=== PATIENT | female | born 1980 | race Caucasian/White ===

== ENCOUNTER 2016-12-04 19:43 | Emergency (ER) | payer OTHER ==
[~2016-12-04] VITALS: Ht 160 cm; Wt 79.3 kg
[~2016-12-04 19:43] MED LIST: ALBU1AER9 INH; MTR400 PO; PSEU30TA20 PO; PSEU60TA80 PO; ZFRODT/8 PO
[2016-12-04 19:47] VITALS: Ht 160 cm; Wt 79.3 kg
[2016-12-04] MEDS ORDERED: CYCL10TA6 PO (20:05)
--- NOTE | 2016-12-04 20:06 | EMERGENCY ROOM VISIT NOTE ---
ED Visit Note First contact with patient: 19:51 CHIEF COMPLAINT: Low back pain HISTORY OF PRESENT ILLNESS: This 35-year-old female patient presents to the emergency department ambulatory complaining of pain in the low back which is chronic, but worsened one week ago. The patient reports that she has chronic problems with her low back. She states that one week ago, she fell forward, which strained her low back. The pain has been gradually worsening over the past week. She states that her left leg occasionally goes numb, which has happened before with her chronic back pain. The pain is located in the left side of her low back and radiates into the hip. The patient rates her discomfort a 5/10 and describes the pain as sharp. She has not been taking any medication at home for the pain. The patient denies any loss of control of their bowel or bladder functions. There has been no leg numbness or weakness, and no change in sensation. No nausea or vomiting or abdominal pain. No chest pain or shortness of breath. No dysuria or increased urinary frequency. REVIEW OF SYSTEMS: A review of systems was performed with positives and pertinent negatives listed in the history of present illness. All other systems were reviewed and are negative. ALLERGIES: Cortisone, sulfa antibiotics MEDICATIONS: See med list PMH: Asthma SOCIAL HISTORY: The patient lives locally with her family. She is a smoker. She denies alcohol use. PHYSICAL EXAM: VITALS: Vitals are noted on the nurse's note and reviewed by myself. Vital signs stable. GENERAL: This is a 35-year-old female, in no acute distress, nondiaphoretic, well-developed well-nourished. SKIN: The skin was without rashes, erythema, edema, or bruising. Capillary refill less than 2 seconds. NECK: Supple without nuchal rigidity. No cervical spine tenderness. No paraspinous muscle tenderness. HEART: Regular rate and rhythm without murmurs gallops or rubs. LUNGS: Clear to auscultation bilaterally without wheezes, rales or rhonchi. ABDOMEN: Positive bowel sounds x 4. Normal tympanic percussion. Soft, nontender, without masses or organomegaly. Berman sign negative. MUSCULOSKELETAL: No muscle atrophy, erythema, or edema noted of the back. There is no tenderness over the lumbar spinous processes. There is no tenderness over the paraspinous muscles. There is no tenderness over the thoracic spine or paraspinous muscles. There are no muscle spasms present. The patient is slow to move around with maximum tenderness with flexion. Negative straight leg raise test. NEURO: Patient was alert and oriented to person place and time. Normal sensation to light and sharp touch. Deep tendon reflexes 2+ in the lower extremities. Dorsalis pedis pulse 2+ bilaterally. Strength 5/5 and equal in the bilateral lower extremities. EMERGENCY DEPARTMENT COURSE: The patient was evaluated as above. She presents with an acute exacerbation of chronic low back pain. The patient's exam is unremarkable. She did not sustain trauma to the back during the fall. There is nothing to suggest cauda equina syndrome or cord compression. I do not feel further imaging is necessary. The patient was given a prescription and home pack of Flexeril. She was instructed to follow-up with her primary care provider for further evaluation of her ongoing back pain. She will return for worsening symptoms. She verbalized understanding of my assessment and treatment plan and was discharged home in good condition. DIAGNOSIS: Acute exacerbation of chronic low back pain Problem List Medical Problems: (1) Acute bacterial tonsillitis Status: Resolved (2) Acute bacterial tonsillitis Status: Resolved (3) Acute tonsillitis Status: Resolved (4) Asthma, Unspecified Status: Chronic (5) Herniated disc Status: Chronic (6) Sore throat Status: Resolved (7) Sore throat Status: Resolved (8) Strep Sore Throat Status: Resolved (9) Tubal Ligation Status Status: Resolved Surgical Problems: (1) S/P tonsillectomy and adenoidectomy Status: Resolved Current/Historical Medications Scheduled Cyclobenzaprine Hcl (Flexeril), 10 MG PO TID Fluticasone Propionate (Nasal) (Flonase Allergy Relief), 2 SPRAYS ELINA DAILY Scheduled PRN Albuterol Sulfate (Proair Respiclick), 2 PUFFS INH QID PRN for Asthma Symptoms Fluticasone Prop/Salmeterol (Advair Diskus 100/50 60 Dose), 1 PUFF INH BID PRN for SOB/Wheezing Ibuprofen (Ibuprofen), 400 MG PO TID PRN for Pain Ondansetron (Ondansetron Odt), 8 MG PO Q8 PRN for Nausea Pseudoephedrine (Sudafed), 30 MG PO UD PRN for Decongestant/Sinus Relief Pseudoephedrine-Guaifenesin (Mucinex D), 1 TAB PO BID PRN for CONGESTION Sumatriptan Succinate (Sumatriptan Succinate), 50 MG PO UD PRN for Migraine Sumatriptan Succinate (Sumatriptan Succinate), 6 MG SC UD PRN for Migraine Allergies Coded Allergies: Cortisone (Verified Allergy, Unknown, Rash/hives, 08/18/16) Reported by PT. Sulfa Antibiotics (Unverified Allergy, Unknown, RASH, 08/18/16) Vital Signs Date Time Temp Pulse Resp B/P Pulse Ox O2 Delivery O2 Flow Rate FiO2 12/04/16 20:21 37.0 85 16 132/88 98 12/04/16 20:20 85 16 132/88 98 Room Air 12/04/16 19:47 37.0 85 16 138/91 98 Room Air Medications Administered Medications (Trade) Dose Ordered Sig/Hellen Route Start Time Stop Time Status Last Admin Dose Admin Cyclobenzaprine HCl (FLEXERIL 10MG Home Pack) 1 homepack UD ONCE PO 12/04/16 20:15 12/04/16 20:16 DC 12/04/16 20:17 1 HOMEPACK Departure Information Impression Primary Impression: Acute exacerbation of chronic low back pain Dispostion Home / Self-Care Condition GOOD Prescriptions Cyclobenzaprine Hcl (FLEXERIL) 10 Mg Tab 10 MG PO TID for 5 Days, #15 TAB Prov: Dulce Carranza ., DARCY 12/04/16 Referrals Apolinar Wood M.D. (PCP) Patient Instructions My [facility] Additional Instructions You have been treated in the Emergency Department for Back Pain. You have been prescribed Flexeril (cyclobenzaprine) 1-2 tabs orally, three times per day. Do NOT exceed 30 mg (6 tabs) per day. Take your first dose at bedtime as it can make you drowsy. Always take all medications as prescribed. For pain control, you can use the following [id number] medicines (if >12 yo): - Regular strength (325mg/tab) Tylenol (acetaminophen) 2 tabs every 4-6 hours as needed. Do not exceed 12 tablets in a 24 hour period. Avoid taking more than 4 grams (4000 mg) of Tylenol per day. This includes any other sources of acetaminophen you may take on a regular basis. - Regular strength (200 mg/tab) Advil (ibuprofen) 1-2 tabs every 4-6 hours as needed. Do not exceed a dose of 3200 mg per day. If this is an acute injury, ice can be applied to the area of pain for the first 3 days to help decrease pain and inflammation. After the first 3 days, a heating pad can be used over the area for continued soothing relief. You should schedule a follow-up appointment in 2-3 days with your Primary Care Provider for further evaluation and treatment of your back pain. Return to the Emergency Department if your current symptoms worsen despite treatment course outlined above, or if you develop any of the following symptoms : intractable pain despite aforementioned treatment course, loss of control of your bowel or bladder, numbness or tingling in your groin, or development of a fever.
[2016-12-04] MEDS ORDERED: FLEXERIL HOME PACK 10 MG VIAL PO ONE (20:15)
[2016-12-04 20:21] VITALS: BP 132/88; PULSE 85; TEMP 37; O2SAT 98
[2017-02-22] MEDS ORDERED: ADVIN10/60 INH (03:00)
[2017-02-22] MEDS ORDERED: FLUT0.15 NAE (03:02)
[2017-02-22] MEDS ORDERED: SUMA1INJ5 INJ (17:53)
[2017-02-22] MEDS ORDERED: IMT50 PO (17:53)
[2017-02-22] MEDS ORDERED: ALBU18002 INH (20:04)
[2017-02-22] MEDS ORDERED: IBUP-103 PO (20:37)
[2017-02-22] MEDS ORDERED: OMEP20CA9 PO (20:37)
== END 2016-12-04 20:21 | disposition home or self-care (01) ==
LOC: C.EDB 19:44 → C.EDD 20:21
DX: M54.5 Low back pain (principal); G89.29 Other chronic pain; J45.909 Unspecified asthma, uncomplicated; F17.200 Nicotine dependence, unspecified, uncomplicated

== ENCOUNTER 2016-12-08 16:41 | Emergency (ER) | payer OTHER ==
[~2016-12-08] VITALS: Ht 162.6 cm; Wt 78.1 kg
[~2016-12-08 16:41] MED LIST changes: -ALBU1AER9 INH; +CYCL10TA6 PO
[2016-12-08 16:43] VITALS: TEMP 36.5; Ht 162.6 cm; Wt 78.1 kg
--- NOTE | 2016-12-08 17:08 | EMERGENCY ROOM VISIT NOTE ---
History Report prepared by Wilfredo: Liat Hernandez Under the Supervision of: Dr. Raymond Larios M.D. First contact with patient: 17:01 Chief Complaint: ABDOMINAL PAIN Stated Complaint: ABDOMINAL PAIN, VOMITING, DIARRHEA History of Present Illness The patient is a 36 year old female who presents to the Emergency Room with complaints of persistent right upper quadrant abdominal pain starting 3 days [employer]. The patient currently rates her pain as a 5/10 in severity. The patient states that along with her abdominal pain she has had nausea, and diarrhea along with her symptoms. The patient states that after eating the pain is worsened and causes her to have increased diarrhea. The patient states that she did have shrimp a few days ago which was not usual for her but states no one else has had similar symptoms. The patient denies any fevers, chills or leg pain. She states she has never had similar abdominal pain as she does today but states she does have history of ovarian cysts on her left ovary which she relates to her history of irregular menstrual periods which have been occurring over a long period of time. The patient states that she has never had any issues eating greasy foods in the past. 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 Review of Systems All systems have been listed, reviewed, and are negative other than those previously mentioned. Please see Additional Medical History Sheet. Past Medical & Surgical Medical Problems: (1) Acute bacterial tonsillitis (2) Acute bacterial tonsillitis (3) Acute tonsillitis (4) Asthma (5) Asthma, Unspecified (6) Herniated disc (7) Sore throat (8) Sore throat (9) Strep Sore Throat (10) Tubal Ligation Status Surgical Problems: (1) S/P tonsillectomy and adenoidectomy Family History Cancer Diabetes mellitus Hypertension Social History Smoking Status: Current Every Day Smoker Alcohol Use: none Drug Use: none Marital Status: single, Housing Status: lives with family Occupation Status: unemployed, disabled Current/Historical Medications Scheduled Cyclobenzaprine Hcl (Flexeril), 10 MG PO TID Fluticasone Propionate (Nasal) (Flonase Allergy Relief), 2 SPRAYS ELINA DAILY Ondasetron Odt (Zofran Odt), 4 MG SL Q6H Scheduled PRN Albuterol Sulfate (Proair Respiclick), 2 PUFFS INH QID PRN for Asthma Symptoms Fluticasone Prop/Salmeterol (Advair Diskus 100/50 60 Dose), 1 PUFF INH BID PRN for SOB/Wheezing Hydrocodone/Acetaminophen 5MG/325MG ([place] 5MG/325MG), 1-2 TABLETS PO Q4 PRN for abdominal pain Ibuprofen (Ibuprofen), 400 MG PO TID PRN for Pain Ondansetron (Ondansetron Odt), 8 MG PO Q8 PRN for Nausea Pseudoephedrine (Sudafed), 30 MG PO UD PRN for Decongestant/Sinus Relief Pseudoephedrine-Guaifenesin (Mucinex D), 1 TAB PO BID PRN for CONGESTION Sumatriptan Succinate (Sumatriptan Succinate), 50 MG PO UD PRN for Migraine Sumatriptan Succinate (Sumatriptan Succinate), 6 MG SC UD PRN for Migraine Allergies Coded Allergies: Cortisone (Verified Allergy, Unknown, Rash/hives, 12/08/16) Reported by PT. Sulfa Antibiotics (Unverified Allergy, Unknown, RASH, 12/08/16) Physical Exam Vital Signs Date Time Temp Pulse Resp B/P Pulse Ox O2 Delivery O2 Flow Rate FiO2 12/08/16 20:08 78 18 129/62 100 Room Air 12/08/16 19:26 80 18 117/66 99 Room Air 12/08/16 18:15 72 18 132/64 100 Room Air 12/08/16 16:43 36.5 92 20 124/71 100 Room Air Physical Exam GENERAL: Patient awake, alert, oriented x 3. Patient follows commands. Patient does not appear toxic. Patient is adequately hydrated and well- nourished. SKIN: No erythema, pallor, cyanosis or rash HEENT: Normal head, pupils equal, reactive to light and accommodation. Oral cavity is dry, and posterior pharynx appear normal. Neck: Without adenopathy, no neck vein distention. LUNGS: Clear to auscultation. No wheezes, no rales, no rhonchi. HEART: No murmurs. No gallops. No rubs ABDOMEN: Tenderness to right upper quadrant, rest of abdomen was nontender. No masses, no rebound, no hepatomegaly or splenomegaly. EXTREMITIES: No signs of trauma. No pedal or pretibial edema. No calf or thigh tenderness. NEUROLOGIC: Cranial nerves II-XII within normal limits. No gross motor sensory function deficits. Medical Decision & Procedures ER Provider Diagnostic Interpretation: US results are interpretations by the radiologist and per my review. Right upper quadrant ultrasound GALLBLADDER-ABD LIMITED CLINICAL HISTORY: FU PAIN nausea TECHNIQUE: Ultrasound COMPARISON STUDY: 2013 FINDINGS: Normal gallbladder. Common bile duct 2 mm at. Liver pancreas and right kidney are unremarkable. Pancreatic duct is 2 mm. No evidence for renal hydronephrosis. IMPRESSION: Normal study Electronically signed by: Jose Day M.D. 12/08/2016 6:43 PM Dictated Date/Time: 12/08/2016 6:41 PM Laboratory Results 12/08/16 17:57 Red Blood Count 4.89, Mean Corpuscular Volume 88.3, Mean Corpuscular Hemoglobin 30.5, Mean Corpuscular Hemoglobin Concent 34.5, Mean Platelet Volume 13.1, Neutrophils (%) (Auto) 54.9, Lymphocytes (%) (Auto) 36.0, Monocytes (%) (Auto) 6.4, Eosinophils (%) (Auto) 2.1, Basophils (%) (Auto) 0.4, Neutrophils # (Auto) 4.64, Lymphocytes # (Auto) 3.04, Monocytes # (Auto) 0.54, Eosinophils # (Auto) 0.18, Basophils # (Auto) 0.03 12/08/16 17:57 Test 12/08/16 17:37 12/08/16 17:57 Urine Color YELLOW Urine Appearance CLOUDY (CLEAR) Urine pH 7.5 (4.5-7.5) Urine Specific [place] 1.021 (1.000-1.030) Urine Protein NEG (NEG) Urine Glucose (UA) NEG (NEG) Urine Ketones NEG (NEG) Urine Occult Blood NEG (NEG) Urine Nitrite NEG (NEG) Urine Bilirubin NEG (NEG) Urine Urobilinogen NEG (NEG) Urine Leukocyte Esterase NEG (NEG) Urine WBC (Auto) 1-5 /hpf (0-5) Urine RBC (Auto) 0-4 /hpf (0-4) Urine Hyaline Casts (Auto) 1-5 /lpf (0-5) Urine Epithelial Cells (Auto) >30 /lpf (0-5) Urine Bacteria (Auto) 1+ (NEG) Urine Test NEG (NEG) White Blood Count 8.45 K/uL (4.8-10.8) Red Blood Count 4.89 M/uL (4.2-5.4) Hemoglobin 14.9 g/dL (12.0-16.0) Hematocrit 43.2 % (37-47) Mean Corpuscular Volume 88.3 fL (80-100) Mean Corpuscular Hemoglobin 30.5 pg (25-34) Mean Corpuscular Hemoglobin Concent 34.5 g/dl (32-36) Platelet Count 187 K/uL (130-400) Mean Platelet Volume 13.1 fL (7.4-10.4) Neutrophils (%) (Auto) 54.9 % Lymphocytes (%) (Auto) 36.0 % Monocytes (%) (Auto) 6.4 % Eosinophils (%) (Auto) 2.1 % Basophils (%) (Auto) 0.4 % Neutrophils # (Auto) 4.64 K/uL (1.4-6.5) Lymphocytes # (Auto) 3.04 K/uL (1.2-3.4) Monocytes # (Auto) 0.54 K/uL (0.11-0.59) Eosinophils # (Auto) 0.18 K/uL (0-0.5) Basophils # (Auto) 0.03 K/uL (0-0.2) RDW Standard Deviation 42.5 fL (36.4-46.3) RDW Coefficient of Variation 13.1 % (11.5-14.5) Immature Granulocyte % (Auto) 0.2 % Immature Granulocyte # (Auto) 0.02 K/uL (0.00-0.02) Anion Gap 10.0 mmol/L (3-11) Est Creatinine Clear Calc Drug Dose 141.8 ml/min Estimated GFR () 140.0 Estimated GFR (Non- 120.8 BUN/Creatinine Ratio 13.7 (10-20) Calcium Level 8.5 mg/dl (8.5-10.1) Total Bilirubin 0.2 mg/dl (0.2-1) Aspartate Amino Transf (AST/SGOT) 9 U/L (15-37) Alanine Aminotransferase (ALT/SGPT) 15 U/L (12-78) Alkaline Phosphatase 54 U/L (45-117) Total Protein 6.5 gm/dl (6.4-8.2) Albumin 3.2 gm/dl (3.4-5.0) Globulin 3.3 gm/dl (2.5-4.0) Albumin/Globulin Ratio 1.0 (0.9-2) Laboratory results as stated above per my review. Medications Administered Medications (Trade) Dose Ordered Sig/Hellen Route Start Time Stop Time Status Last Admin Dose Admin Morphine Sulfate (MoRPHine SULFATE INJ) 6 mg Q1H PRN IV 12/08/16 17:15 12/08/16 20:40 DC 12/08/16 19:36 6 MG Ondansetron HCl 4 mg 4 mg Q1HWA PRN IV 12/08/16 17:15 12/08/16 20:40 DC 12/08/16 18:04 4 MG Sodium Chloride (Nss 1000ml) 2,000 ml @ 1,000 mls/hr Q2H ONCE IV 12/08/16 17:15 12/08/16 19:14 DC 12/08/16 18:04 1,000 MLS/HR Acetaminophen/ Hydrocodone Bitart ([place] 5/325mg Home Pack) 1 homepack UD ONCE PO 12/08/16 19:45 12/08/16 19:46 DC 12/08/16 20:08 1 HOMEPACK Ondansetron HCl (ZOFRAN ODT 4MG Home Pack) 1 homepack UD ONCE PO 12/08/16 19:45 12/08/16 19:46 DC 12/08/16 20:08 1 HOMEPACK ED Course 1700: Past medical records reviewed. The patient was evaluated in room A2. A complete history and physical examination was performed. 1715: Ordered Sodium Chloride 2,000 ml @ 1,000 mls/hr IV, Zofran Inj 4 mg IV, Morphine Sulfate 6 mg IV. 1900: I revaluated the patient and she was feeling a little better but still having some abdominal pain. I discussed today's findings with her. She verbalized agreement of the treatment plan. The patient was discharged home. Medical Decision Nurses notes reviewed. Medical history sheet reviewed. Differential diagnosis includes but is not limited to:cholelithiasis, cholecystitis, peptic/gastric ulcer disease, gastroenteritis, dehydration and metabolic disorder. Multiple labs, urinalysis and imaging were performed. Please see above. The patient's white count wasn't elevated. Ultrasound does not reveal stones or cholecystitis. The patient may still have some gallbladder disease and if she continues to have pain she may require HIDA study. In the meantime the patient was encouraged to stay on liquid diet for 24 hours. She will be given pain medication and encouraged to drink extra fluids. She is to follow-up with a family physician. [place] Drug Monitoring Program Search Results: no issues identified Impression Primary Impression: Right upper quadrant abdominal pain Scribe Attestation The scribe's documentation has been prepared under my direction and personally reviewed by me in its entirety. I confirm that the note above accurately reflects all work, treatment, procedures, and medical decision making performed by me. Departure Information Dispostion Home / Self-Care Prescriptions Ondasetron Odt (ZOFRAN ODT) 4 Mg Tab 4 MG SL Q6H for Nausea, #6 TAB Prov: Raymond Larios M.D. 12/08/16 Hydrocodone/Acetaminophen 5MG/325MG ([place] 5MG/325MG) Tab 1-2 TABLETS PO Q4 Y for abdominal pain, #20 TAB PRN PAIN Prov: Raymond Larios M.D. 12/08/16 Referrals Apolinar Wood M.D. (PCP) Forms Call Back Authorization, HOME CARE DOCUMENTATION FORM, IMPORTANT VISIT INFORMATION Patient Instructions My [facility] Additional Instructions 1 Zofran every 4 hours as needed for nausea. Liquid diet for the next 24 hours. Drink at least 4 quarts of liquid over the next 24 hours. 1-2 hydrocodone every 4 hours as needed for moderate to severe pain. Do not drive or operate machinery while taking hydrocodone. Follow-up with your family physician within the next 7 days. Return here sooner if the pain is getting much worse.
[2016-12-08] MEDS ORDERED: SODIUM CHLORIDE 0.9% 1000ML 2,000 ML IV ONE (17:15)
[2016-12-08] MEDS ORDERED: ONDANSETRON INJ 2 MG/ML 2 ML VIAL IV PRN (17:15)
[2016-12-08] MEDS: MoRPHine SULFATE 10 MG/ML CARP/VIAL IV PRN ×2 (18:04→19:36)
[2016-12-08 18:10] LABS: MANUAL MICROSCOPIC REQUIRED? NO; URINE APPEARANCE CLOUDY (CLEAR); URINE BILIRUBIN NEG (NEG); URINE COLOR YELLOW; URINE EPITHELIAL CELL AUTO >30 /lpf (0-5); URINE NITRITE NEG (NEG); URINE PH 7.5 (4.5-7.5); URINE SPECIFIC GRAVITY 1.021 (1.000-1.030); UROBILINOGEN NEG (NEG); ZZUR CULT IF INDIC CLEAN CATCH YES
[2016-12-08 18:11] LABS: REVIEW REQ? NO
[2016-12-08 18:12] LABS: BASO % 0.4 %; BASO ABS # 0.03 K/uL (0-0.2); COMPLETE YES; EOS % 2.1 %; HEMATOCRIT 43.2 % (37-47); IG% 0.2 %; LYMPH ABS # 3.04 K/uL (1.2-3.4); MEAN CELL VOLUME 88.3 fL (80-100); MEAN CORPUSCULAR HEMOGLOBIN 30.5 pg (25-34); MEAN CORPUSCULAR HGB CONC 34.5 g/dl (32-36); MEAN PLATELET VOLUME 13.1 fL (7.4-10.4); MONO % 6.4 %; NEUT % 54.9 %; PLATELET COUNT 187 K/uL (130-400); RED BLOOD COUNT 4.89 M/uL (4.2-5.4); WHITE BLOOD COUNT 8.45 K/uL (4.8-10.8)
[2016-12-08 18:28] LABS: BUN/CREATININE RATIO 13.7 (10-20); CALCIUM 8.5 mg/dl (8.5-10.1); CREATININE 0.56 mg/dl (0.60-1.20); POTASSIUM 3.8 mmol/L (3.5-5.1)
--- NOTE | 2016-12-08 18:44 | DIAGNOSTIC IMAGING REPORT ---
Right upper quadrant ultrasound GALLBLADDER-ABD LIMITED CLINICAL HISTORY: FU PAIN nausea TECHNIQUE: Ultrasound COMPARISON STUDY: 2013 FINDINGS: Normal gallbladder. Common bile duct 2 mm at. Liver pancreas and right kidney are unremarkable. Pancreatic duct is 2 mm. No evidence for renal hydronephrosis. IMPRESSION: Normal study Electronically signed by: Jose Day M.D. 12/08/2016 6:43 PM Dictated Date/Time: 12/08/2016 6:41 PM
[2016-12-08] MEDS ORDERED: HYDR-5688 PO (19:04)
[2016-12-08] MEDS ORDERED: ONDA4TAB10 SL (19:08)
[2016-12-08] MEDS ORDERED: NORCO 5/325MG HOME PACK PO ONE (19:45)
[2016-12-08] MEDS ORDERED: ONDANSETRON HOME PACK 4MG OD TAB PO ONE (19:45)
[2016-12-08 20:08] VITALS: BP 129/62; PULSE 78; O2SAT 100
[2017-02-22] MEDS ORDERED: ADVIN10/60 INH (03:00)
[2017-02-22] MEDS ORDERED: FLUT0.15 NAE (03:02)
[2017-02-22] MEDS ORDERED: SUMA1INJ5 INJ (17:53)
[2017-02-22] MEDS ORDERED: IMT50 PO (17:53)
[2017-02-22] MEDS ORDERED: ALBU18002 INH (20:04)
[2017-02-22] MEDS ORDERED: OMEP20CA9 PO (20:37)
[2017-02-22] MEDS ORDERED: IBUP-103 PO (20:37)
== END 2016-12-08 20:15 | disposition home or self-care (01) ==
LOC: C.EDB 16:42 → C.EDA 20:15
DX: R10.11 Right upper quadrant pain (principal); R11.0 Nausea; R19.7 Diarrhea, unspecified; J45.909 Unspecified asthma, uncomplicated; Z98.51 Tubal ligation status; Z83.3 Family history of diabetes mellitus; Z82.49 Family history of ischemic heart disease and other diseases of the circulatory system; F17.210 Nicotine dependence, cigarettes, uncomplicated

== ENCOUNTER 2016-12-16 13:34 | Emergency (ER) | payer OTHER ==
[~2016-12-16] VITALS: Ht 162.6 cm; Wt 79.2 kg
[~2016-12-16 13:34] MED LIST changes: -CYCL10TA6 PO; +HYDR-5688 PO; +ONDA4TAB10 SL
[2016-12-16 13:37] VITALS: TEMP 36.9; Ht 162.6 cm; Wt 79.2 kg
[2016-12-16 14:58] LABS: HEMATOCRIT 39.4 % (37-47); MEAN CELL VOLUME 88.3 fL (80-100); MEAN CORPUSCULAR HEMOGLOBIN 30.9 pg (25-34); MEAN PLATELET VOLUME 13.1 fL (7.4-10.4); PLATELET COUNT 219 K/uL (130-400); RED BLOOD COUNT 4.46 M/uL (4.2-5.4); WHITE BLOOD COUNT 7.96 K/uL (4.8-10.8)
[2016-12-16 15:08] LABS: BUN/CREATININE RATIO 15.1 (10-20); CALCIUM 8.3 mg/dl (8.5-10.1); CREATININE 0.55 mg/dl (0.60-1.20); POTASSIUM 3.7 mmol/L (3.5-5.1)
[2016-12-16 15:20] LABS: BASO % 0.5 %; BASO ABS # 0.04 K/uL (0-0.2); COMPLETE YES; EOS % 3.4 %; GIANT PLATELETS 1+; IG% 0.3 %; LYMPH % 46.5 %; MONO % 7.4 %; NEUT % 41.9 %
--- NOTE | 2016-12-16 15:25 | EMERGENCY ROOM VISIT NOTE ---
History Report prepared by Wilfredo: Zohreh Ruth Under the Supervision of: Dr. Todd Carmichael D.O. First contact with patient: 15:11 Chief Complaint: ABDOMINAL PAIN Stated Complaint: GALLBLADDER PAIN, VOMITING Nursing Triage Summary: Triage note: pt reports she was seen in ED last for similar pain. pt reports increased right upper abd pain since last niht "my dr thinks it is my gall bladder." History of Present Illness The patient is a 36 year old female who presents to the Emergency Room with complaints of worsening RUQ abdominal pain for the past 1 week. She rates her discomfort as a 5/10. She was seen in the ED last week for the same symptoms. She called her primary care physicians office earlier today to tell them about her worsening pain, and they recommended she come to the ED for an evaluation. The patient also complains of persistent nausea and vomiting. 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 A total of 10 systems reviewed and were otherwise negative. Past Medical & Surgical Medical Problems: (1) Acute bacterial tonsillitis (2) Acute bacterial tonsillitis (3) Acute tonsillitis (4) Asthma (5) Asthma, Unspecified (6) Herniated disc (7) Sore throat (8) Sore throat (9) Strep Sore Throat (10) Tubal Ligation Status Surgical Problems: (1) S/P tonsillectomy and adenoidectomy Family History Cancer Diabetes mellitus Hypertension Social History Smoking Status: Current Every Day Smoker Alcohol Use: none Drug Use: none Marital Status: single, Housing Status: lives with family Occupation Status: unemployed, disabled Current/Historical Medications Scheduled Fluticasone Propionate (Nasal) (Flonase Allergy Relief), 2 SPRAYS ELINA DAILY Scheduled PRN Albuterol Sulfate (Proair Respiclick), 2 PUFFS INH QID PRN for Asthma Symptoms Fluticasone Prop/Salmeterol (Advair Diskus 100/50 60 Dose), 1 PUFF INH BID PRN for SOB/Wheezing Ondansetron (Ondansetron Odt), 8 MG PO Q8 PRN for Nausea Sumatriptan Succinate (Sumatriptan Succinate), 50 MG PO UD PRN for Migraine Sumatriptan Succinate (Sumatriptan Succinate), 6 MG SC UD PRN for Migraine Allergies Coded Allergies: Cortisone (Verified Allergy, Unknown, Rash/hives, 12/16/16) Reported by PT. Sulfa Antibiotics (Unverified Allergy, Unknown, RASH, 12/16/16) Physical Exam Vital Signs Date Time Temp Pulse Resp B/P Pulse Ox O2 Delivery O2 Flow Rate FiO2 12/16/16 13:37 36.9 94 18 119/68 96 Room Air Physical Exam CONSTITUTIONAL/VITAL SIGNS: Reviewed / noted above. GENERAL: Non-toxic in appearance. INTEGUMENTARY: Warm, dry, and [place]. HEAD: Normocephalic. EYES: without scleral icterus or trauma. ENT/OROPHARYNX: clear and moist. LYMPHADENOPATHY/NECK: Is supple without lymphadenopathy or meningismus. RESPIRATORY: Lungs clear and equal. CARDIOVASCULAR: Regular rate and rhythm. GI/ABDOMEN: Soft, mild tenderness in epigastric area. No organomegaly or pulsatile mass. No rebound or guarding. Normal bowel sounds. EXTREMITIES: Warm and well perfused. BACK: No CVA tenderness. NEUROLOGICAL: Intact without focal deficits. PSYCHIATRIC: normal affect. MUSCULOSKELETAL: Normally developed with good muscle tone. Medical Decision & Procedures Laboratory Results 12/16/16 14:00 Red Blood Count 4.46, Mean Corpuscular Volume 88.3, Mean Corpuscular Hemoglobin 30.9, Mean Corpuscular Hemoglobin Concent 35.0, Mean Platelet Volume 13.1, Neutrophils (%) (Auto) 41.9, Lymphocytes (%) (Auto) 46.5, Monocytes (%) (Auto) 7.4, Eosinophils (%) (Auto) 3.4, Basophils (%) (Auto) 0.5, Neutrophils # (Auto) 3.34, Lymphocytes # (Auto) 3.70, Monocytes # (Auto) 0.59, Eosinophils # (Auto) 0.27, Basophils # (Auto) 0.04 12/16/16 14:00 Test 12/16/16 14:00 White Blood Count 7.96 K/uL (4.8-10.8) Red Blood Count 4.46 M/uL (4.2-5.4) Hemoglobin 13.8 g/dL (12.0-16.0) Hematocrit 39.4 % (37-47) Mean Corpuscular Volume 88.3 fL (80-100) Mean Corpuscular Hemoglobin 30.9 pg (25-34) Mean Corpuscular Hemoglobin Concent 35.0 g/dl (32-36) Platelet Count 219 K/uL (130-400) Mean Platelet Volume 13.1 fL (7.4-10.4) Neutrophils (%) (Auto) 41.9 % Lymphocytes (%) (Auto) 46.5 % Monocytes (%) (Auto) 7.4 % Eosinophils (%) (Auto) 3.4 % Basophils (%) (Auto) 0.5 % Neutrophils # (Auto) 3.34 K/uL (1.4-6.5) Lymphocytes # (Auto) 3.70 K/uL (1.2-3.4) Monocytes # (Auto) 0.59 K/uL (0.11-0.59) Eosinophils # (Auto) 0.27 K/uL (0-0.5) Basophils # (Auto) 0.04 K/uL (0-0.2) RDW Standard Deviation 41.9 fL (36.4-46.3) RDW Coefficient of Variation 12.9 % (11.5-14.5) Immature Granulocyte % (Auto) 0.3 % Immature Granulocyte # (Auto) 0.02 K/uL (0.00-0.02) Giant Platelets 1+ Anion Gap 9.0 mmol/L (3-11) Est Creatinine Clear Calc Drug Dose 145.4 ml/min Estimated GFR () 140.8 Estimated GFR (Non- 121.5 BUN/Creatinine Ratio 15.1 (10-20) Calcium Level 8.3 mg/dl (8.5-10.1) Total Bilirubin 0.1 mg/dl (0.2-1) Aspartate Amino Transf (AST/SGOT) 11 U/L (15-37) Alanine Aminotransferase (ALT/SGPT) 20 U/L (12-78) Alkaline Phosphatase 61 U/L (45-117) Total Protein 6.0 gm/dl (6.4-8.2) Albumin 3.0 gm/dl (3.4-5.0) Globulin 3.0 gm/dl (2.5-4.0) Albumin/Globulin Ratio 1.0 (0.9-2) Lipase 275 U/L (73-393) Laboratory results as stated above per my review. ED Course 1511: Previous medical records were reviewed. The patient was evaluated in room A2. A complete history and physical examination was performed. 1525: I reevaluated the patient. She is feeling well and resting comfortably. I discussed her results and discharge instructions and she verbalized complete understanding and agreement. Medical Decision Differential considered: pancreatitis, hepatitis, acute cholecystitis, AAA, UTI , pyelonephritis, kidney stones, appendicitis, diverticulitis, shingles, bowel obstruction, mesenteric ischemia, intussusception,hernia, ovarian torsion, ruptured ovarian cyst,ectopic , . This is a 36-year-old female who presents to the ED with a chief complaint of upper abdominal pain. The patient states that she is here for the same symptoms last , 8 days ago. The patient states that she called her doctor because of continued pain. She has been scheduled for a HIDA scan for next week. The patient denies any worsening. She reports some nausea associated with her pain. Her vital signs are stable. Physical exam not show any acute abnormalities. She is minimally tender in the epigastric area. CBC is normal. Complete metabolic panel was normal. LFTs and lipase are normal. The patient had an ultrasound last week that was normal and did not show any stones. The patient is felt stable for discharge and outpatient follow-up. Impression Primary Impression: Abdominal pain, epigastric Scribe Attestation The scribe's documentation has been prepared under my direction and personally reviewed by me in its entirety. I confirm that the note above accurately reflects all work, treatment, procedures, and medical decision making performed by me. Departure Information Dispostion Home / Self-Care Referrals Apolinar Wood M.D. (PCP) Patient Instructions My [facility] Additional Instructions Follow-up with your doctor for further care and evaluation in 1-2 days. Return to the emergency department for worsening or new symptoms or any concerns. You have been examined and treated today on an emergency basis only. This is not a substitute for, or an effort to provide, complete comprehensive medical care. It is impossible to recognize and treat all injuries or illnesses in a single emergency department visit. It is therefore important that you follow up closely with your doctor. Call as soon as possible for an appointment.
[2016-12-16 15:38] VITALS: BP 134/76; PULSE 81; O2SAT 96
[2017-02-22] MEDS ORDERED: ADVIN10/60 INH (03:00)
[2017-02-22] MEDS ORDERED: FLUT0.15 NAE (03:02)
[2017-02-22] MEDS ORDERED: IMT50 PO (17:53)
[2017-02-22] MEDS ORDERED: SUMA1INJ5 INJ (17:53)
[2017-02-22] MEDS ORDERED: ALBU18002 INH (20:04)
[2017-02-22] MEDS ORDERED: IBUP-103 PO (20:37)
[2017-02-22] MEDS ORDERED: OMEP20CA9 PO (20:37)
== END 2016-12-16 15:39 | disposition home or self-care (01) ==
LOC: C.EDB 13:35 → C.EDA 15:39
DX: R10.13 Epigastric pain (principal); J45.909 Unspecified asthma, uncomplicated; Z98.51 Tubal ligation status; F17.200 Nicotine dependence, unspecified, uncomplicated

== ENCOUNTER 2016-12-22 11:32 | Emergency (ER) | payer OTHER ==
[~2016-12-22] VITALS: Ht 162.6 cm; Wt 78.0 kg
[~2016-12-22 11:32] MED LIST changes: -HYDR-5688 PO; -MTR400 PO; -ONDA4TAB10 SL; -PSEU30TA20 PO; -PSEU60TA80 PO
[2016-12-22 11:34] VITALS: TEMP 36.9; Ht 162.6 cm; Wt 78.0 kg
[2016-12-22] MEDS ORDERED: KETOROLAC TROMETHAMINE 60 MG/2 ML VIAL IM STA (11:53)
[2016-12-22] MEDS ORDERED: AMOX875T PO (11:56)
[2016-12-22] MEDS ORDERED: AMOXICILLIN/CLAVULANATE TAB 875 MG TAB PO ONE (12:00)
--- NOTE | 2016-12-22 12:01 | EMERGENCY ROOM VISIT NOTE ---
History First contact with patient: 11:42 Chief Complaint: HEADACHE Stated Complaint: SWELLING TO NECK, HEAD THROBBING, RIGHT EAR PAIN History of Present Illness The patient is a 36 year old female who presents to the Emergency Room with complaints of right ear pain, head pain, and swelling to her neck for the past 3 days. The patient does not report fever or chills. She has been using Motrin at home with only minimal improvement of her symptoms. She has not had a significant cough or wheezing. She does have a mild sore throat. The patient has a history of migraines, and this does not feel like a migraine headache to her. She has not had photophobia, numbness, paresthesias, or rash. She does not have known exposure to disease. She rates her current discomfort a 7/10. Review of Systems More than 10 systems were reviewed and otherwise negative with the exception of history of present illness. Past Medical/Surgical History Medical Problems: (1) Acute bacterial tonsillitis (2) Acute bacterial tonsillitis (3) Acute tonsillitis (4) Asthma (5) Asthma, Unspecified (6) Herniated disc (7) Sore throat (8) Sore throat (9) Strep Sore Throat (10) Tubal Ligation Status Surgical Problems: (1) S/P tonsillectomy and adenoidectomy Family History Cancer Diabetes mellitus Hypertension Social History Smoking Status: Current Every Day Smoker Alcohol Use: none Drug Use: none Marital Status: single, Housing Status: lives with family Occupation Status: unemployed, disabled Current/Historical Medications Scheduled Amoxicillin & Pot Clavulanate (Augmentin 875-125 mg), 1 TAB PO BID Fluticasone Propionate (Nasal) (Flonase Allergy Relief), 2 SPRAYS ELINA DAILY Scheduled PRN Albuterol Sulfate (Proair Respiclick), 2 PUFFS INH QID PRN for Asthma Symptoms Fluticasone Prop/Salmeterol (Advair Diskus 100/50 60 Dose), 1 PUFF INH BID PRN for SOB/Wheezing Ondansetron (Ondansetron Odt), 8 MG PO Q8 PRN for Nausea Sumatriptan Succinate (Sumatriptan Succinate), 50 MG PO UD PRN for Migraine Sumatriptan Succinate (Sumatriptan Succinate), 6 MG SC UD PRN for Migraine Allergies Coded Allergies: Cortisone (Verified Allergy, Unknown, Rash/hives, 12/16/16) Reported by PT. Sulfa Antibiotics (Unverified Allergy, Unknown, RASH, 12/16/16) Physical Exam Vital Signs Date Time Temp Pulse Resp B/P Pulse Ox O2 Delivery O2 Flow Rate FiO2 12/22/16 11:34 36.9 112 18 125/71 95 Physical Exam VITALS: Vitals are noted on the nurse's note and reviewed by myself. Vital signs stable. GENERAL: Well-developed, well-nourished, white female, who is in no acute distress and resting comfortably. Patient is cooperative with the examination. HEAD: Normocephalic atraumatic. EARS: External ear normal. The left canal and TM appear normal. The right TM is erythematous and bulging with air-fluid interface. No mastoid tenderness. EYES: Pupils equal round and reactive to light and accommodation. Conjunctivae without injection, sclerae without icterus. Extraocular movements intact. NOSE: Patent, turbinates without inflammation or discharge. MOUTH: Mucous membranes moist. Tonsils are recessed or surgically absent and not adequately identified. Pharynx without erythema, blood, or exudate. Uvula midline. Airway patent. NECK: Supple without nuchal rigidity. Shotty lymphadenopathy throughout the anterior chains bilateral. No thyromegaly. Cervical spine is nontender. No meningismus. HEART: Regular rate and rhythm without murmurs gallops or rubs. LUNGS: Clear to auscultation bilaterally without wheezes, rales or rhonchi. No retractions or accessory muscle use. Medical Decision & Procedures ED Course Physical exam and history were performed. Nursing notes and EMR were reviewed. Patient appears to have a right otitis media on examination. She additionally has secondary signs of infection such as shotty lymphadenopathy. She is experiencing some sinus congestion symptoms, and she may have a sinusitis as well. The patient does not have signs of meningitis or encephalitis on exam. She will be given 60 mg IM Toradol here in the department as well as a first dose of Augmentin. The patient will be treated with a continuation course of Augmentin. She is on a no prescription treatment plan at this facility and was instructed to use [id number] analgesics for her discomfort. The patient was otherwise invited back to the emergency department with any new, worsening, or concerning symptoms. The chart was completed utilizing Dragon Speech Voice Recognition Software. Grammatical errors, random word insertions, pronoun errors, and incomplete sentences are an occasional consequence of this system due to software limitations, ambient noise, and hardware issues. Any formal questions or concerns about the content, text, or information contained within the body of this dictation should be directly addressed to the provider for clarification. . Medical Decision Differential diagnosis: Etiologies such as viral syndrome, otitis, pharyngitis, pneumonia, influenza, meningitis, urinary tract infection, sepsis, bacteremia, as well as others were entertained. Impression Primary Impression: Right otitis media Additional Impression: Headache Departure Information Dispostion Home / Self-Care Condition GOOD Prescriptions Amoxicillin & Pot Clavulanate (Augmentin 875-125 mg) 1 Tab Tab 1 TAB PO BID, #19 TAB Prov: Edmar Lau PA-C 12/22/16 Forms HOME CARE DOCUMENTATION FORM, IMPORTANT VISIT INFORMATION Patient Instructions My [facility] Additional Instructions You were seen and evaluated today on an emergency basis only. This is not a substitute for, or an effort to provide, complete comprehensive medical care. It is not possible to recognize and treat all injuries or illnesses in a single emergency department visit. For this reason it is recommended that you followup with your primary care physician in the next 2-3 days for recheck of your condition. For baseline pain relief you may alternate ibuprofen and acetaminophen every 4 hours for pain control. Take 600 mg ibuprofen (Advil) and then 4 hours later take 1000 mg acetaminophen (Tylenol). Do not take more than 3000 mg acetaminophen in a single day. Amoxicillin Clavulanate (Augmentin) 875mg: Take one pill twice daily for 10 total days for your infection. All antibiotics can cause diarrhea. If this occurs and you feel worse or it does not resolve in 1-2 days follow up with your doctor or return to the Emergency Department as this could be signs of serious underlying problems. Any medication can cause an allergic reaction, stop the pills immediately and return to the ER for rash, hives, breathing difficulties, or swelling. Drink plenty of fluids and remain well hydrated. You are welcome to return to the emergency department anytime with new, worsening, or concerning symptoms. Problem Qualifiers
[2016-12-22 12:11] VITALS: BP 112/72; PULSE 85; O2SAT 95
[2016-12-22] MEDS ORDERED: IBUP-1428 PO (12:12)
[2017-02-22] MEDS ORDERED: ADVIN10/60 INH (03:00)
[2017-02-22] MEDS ORDERED: FLUT0.15 NAE (03:02)
[2017-02-22] MEDS ORDERED: IMT50 PO (17:53)
[2017-02-22] MEDS ORDERED: SUMA1INJ5 INJ (17:53)
[2017-02-22] MEDS ORDERED: ALBU18002 INH (20:04)
[2017-02-22] MEDS ORDERED: OMEP20CA9 PO (20:37)
[2017-02-22] MEDS ORDERED: IBUP-103 PO (20:37)
== END 2016-12-22 12:12 | disposition home or self-care (01) ==
LOC: C.EDB 11:33 → C.EDA 12:12
DX: H66.91 Otitis media, unspecified, right ear (principal); R51 Headache; J45.909 Unspecified asthma, uncomplicated; Z98.51 Tubal ligation status; F17.200 Nicotine dependence, unspecified, uncomplicated

== ENCOUNTER 2017-02-12 15:04 | Emergency (ER) | payer OTHER ==
[~2017-02-12] VITALS: Ht 162.6 cm; Wt 81.0 kg
[~2017-02-12 15:04] MED LIST changes: +IBUP-1428 PO
[2017-02-12 15:22] VITALS: TEMP 37.4; Ht 162.6 cm; Wt 81.0 kg
[2017-02-12] MEDS ORDERED: ONDANSETRON INJ 2 MG/ML 2 ML VIAL IV STA (16:12)
[2017-02-12] MEDS ORDERED: SODIUM CHLORIDE 0.9% 1000ML 1,000 ML IV STA (16:12)
[2017-02-12] MEDS ORDERED: MoRPHine SULFATE 4 MG/ML 1 ML CARP\\VIAL IV STA (16:12)
[2017-02-12 16:50] LABS: BASO % 0.5 %; BASO ABS # 0.04 K/uL (0-0.2); COMPLETE YES; EOS % 1.8 %; HEMATOCRIT 41.7 % (37-47); IG% 0.2 %; LYMPH % 28.9 %; LYMPH ABS # 2.53 K/uL (1.2-3.4); MEAN CORPUSCULAR HGB CONC 34.1 g/dl (32-36); MEAN PLATELET VOLUME 12.9 fL (7.4-10.4); MONO % 7.5 %; NEUT % 61.1 %; PLATELET COUNT 216 K/uL (130-400); RED BLOOD COUNT 4.58 M/uL (4.2-5.4); WHITE BLOOD COUNT 8.76 K/uL (4.8-10.8)
[2017-02-12 16:55] LABS: URINE APPEARANCE CLEAR (CLEAR); URINE BILIRUBIN NEG (NEG); URINE COLOR YELLOW; URINE NITRITE NEG (NEG); URINE PH 7.5 (4.5-7.5); URINE SPECIFIC GRAVITY 1.013 (1.000-1.030); UROBILINOGEN NEG (NEG)
[2017-02-12 17:07] LABS: ALT/SGPT 17 U/L (12-78); AST/SGOT 7 U/L (15-37); BLOOD UREA NITROGEN 8 mg/dl (7-18); BUN/CREATININE RATIO 14.8 (10-20); CALCIUM 8.6 mg/dl (8.5-10.1); CARBON DIOXIDE 28 mmol/L (21-32); CHLORIDE 110 mmol/L (98-107); CREATININE 0.53 mg/dl (0.60-1.20); GLUCOSE 113 mg/dl (70-99); POTASSIUM 3.8 mmol/L (3.5-5.1); SODIUM 144 mmol/L (136-145)
[2017-02-12 17:10] LABS: ALKALINE PHOSPHATASE 62 U/L (45-117)
[2017-02-12 17:17] LABS: MANUAL MICROSCOPIC REQUIRED? NO; REVIEW REQ? NO
[2017-02-12] MEDS ORDERED: HYDROmorphone INJ 1 MG/ML SYR IV STA (17:27)
--- NOTE | 2017-02-12 17:29 | DIAGNOSTIC IMAGING REPORT ---
LUMBAR SPINE CT CT DOSE: HISTORY: Right-sided back pain. TECHNIQUE: Multiaxial CT images of the lumbar spine were performed and reformatted in the sagittal and coronal plane without the use of contrast. COMPARISON: None. FINDINGS: No fractures. No subluxation. Paraspinal soft tissues are unremarkable. Partially calcified focal central disc protrusion at L5-S1 resulting in mild central canal narrowing. Moderate disc space narrowing at L5-S1. IMPRESSION: No fractures within the lumbar spine. Partially calcified focal central disc protrusion at L5-S1 resulting in mild central canal narrowing. Electronically signed by: Pranav Piña M.D. 02/12/2017 5:26 PM Dictated Date/Time: 02/12/2017 5:21 PM
--- NOTE | 2017-02-12 17:36 | DIAGNOSTIC IMAGING REPORT ---
ABDOMEN AND PELVIS CT WITHOUT CONTRAST CT DOSE: 884.13 mGy.cm HISTORY: Right-sided flank pain. TECHNIQUE: Multiaxial CT images of the abdomen and pelvis were performed without the use of intravenous and oral contrast according to the standard department stone protocol. COMPARISON STUDY: Abdomen and pelvis CT 09/22/2016. FINDINGS: Stable 5 mm subpleural nodule within the left lower lobe on image 12. No fractures within the visualized osseous structures. The unenhanced liver, spleen, adrenal glands, gallbladder, and pancreas are unremarkable. No renal stones or hydronephrosis. No bowel wall thickening or obstruction. Normal appendix. The bladder, uterus, bilateral adnexa are unremarkable. IMPRESSION: 1. No renal stones or hydronephrosis. 2. Normal appendix. 3. No bowel wall thickening or obstruction. 4. Stable 5 mm subpleural indeterminate pulmonary nodule within the left lower lobe. Electronically signed by: Pranav Piña M.D. 02/12/2017 5:34 PM Dictated Date/Time: 02/12/2017 5:26 PM
[2017-02-12] MEDS ORDERED: HYDROmorphone INJ 0.5 MG/0.5 ML SYR ONE (17:55)
[2017-02-12] MEDS ORDERED: OXYC1TAB3 PO (17:56)
[2017-02-12 18:01] VITALS: BP 134/72; PULSE 75; O2SAT 98
--- NOTE | 2017-02-12 18:07 | EMERGENCY ROOM VISIT NOTE ---
History Report prepared by Wilfredo: Flor Parada Under the Supervision of: Dr. Mo Hernandez M.D. First contact with patient: 16:04 Chief Complaint: FLANK PAIN Stated Complaint: R KIDNEY PAIN History of Present Illness The patient is a 36 year old female who presents to the Emergency Room with complaints of waxing and waning right flank pain starting yesterday at 1000. She describes the pain as sharp and it radiates down to her right hip. The pain worsens with breathing, movement, and urination. At 0100 this morning the pain was very severe and her fiance was close to calling EMS. She reports feeling like she has to urinate, but being unable to urinate. She has nausea. She denies any fever, vomiting, diarrhea, abnormal vaginal discharge or bleeding, dysuria or hematuria. She has never had a kidney stone before. Her last menstrual period was 2 days ago and was normal for her. She denies any chance of . She denies any heavy lifting. Source of History: patient Onset: yesterday 1000 Position: other (right flank) Quality: sharp Timing: waxes/wanes Modifying Factors (Worsening): breathing, movement, urination Associated Symptoms: + nausea, No diarrhea, No fevers, No numbness, No vomiting, No weakness Note: Pt reports feeling like she needs to urinate, but being unable to. Pt denies abnormal vaginal discharge or bleeding, dysuria, hematuria. Review of Systems See HPI for pertinent positives & negatives. A total of 10 systems reviewed and were otherwise negative. Past Medical & Surgical Medical Problems: (1) Acute bacterial tonsillitis (2) Acute bacterial tonsillitis (3) Acute tonsillitis (4) Asthma (5) Asthma, Unspecified (6) Herniated disc (7) Sore throat (8) Sore throat (9) Strep Sore Throat (10) Tubal Ligation Status Surgical Problems: (1) S/P tonsillectomy and adenoidectomy Family History Cancer Diabetes mellitus Hypertension Social History Smoking Status: Current Every Day Smoker Alcohol Use: none Drug Use: none Marital Status: in relationship Housing Status: lives with family Occupation Status: unemployed, disabled Current/Historical Medications Scheduled PRN Albuterol Sulfate (Proair Respiclick), 2 PUFFS INH QID PRN for Asthma Symptoms Fluticasone Prop/Salmeterol (Advair Diskus 100/50 60 Dose), 1 PUFF INH BID PRN for SOB/Wheezing Fluticasone Propionate (Nasal) (Flonase Allergy Relief), 2 SPRAYS ELINA DAILY PRN for SYMPTOMS Ibuprofen (Motrin), 800 MG PO Q8H PRN for Pain Ondansetron (Ondansetron Odt), 8 MG PO Q8 PRN for Nausea Oxycodone Ir (Roxicodone Ir), 5 MG PO Q4H PRN for Pain Sumatriptan Succinate (Sumatriptan Succinate), 50 MG PO UD PRN for Migraine Sumatriptan Succinate (Sumatriptan Succinate), 6 MG SC UD PRN for Migraine Allergies Coded Allergies: Cortisone (Verified Allergy, Severe, Rash/hives, 02/12/17) "LOOKED LIKE I WAS SUNBURNT ALL OVER". Reported by PT. Sulfa Antibiotics (Verified Allergy, Unknown, RASH, 02/12/17) Physical Exam Vital Signs Date Time Temp Pulse Resp B/P Pulse Ox O2 Delivery O2 Flow Rate FiO2 02/12/17 18:01 75 18 134/72 98 Room Air 02/12/17 17:16 74 18 113/49 95 Room Air 02/12/17 15:22 37.4 94 20 121/75 98 Room Air Physical Exam Constitutional: Vital signs reviewed. Eyes: Pupils are equal round reactive to light. Conjunctiva are noninjected. ENT: Pharynx is clear without erythema or exudate. Mucous membranes are moist. Neck supple without meningeal signs. Respiratory: Clear to auscultation bilaterally. Breath sounds are equal bilaterally. Cardiovascular: Regular rate and rhythm. No rubs or gallops. GI: Soft, nondistended and nontender. Bowel sounds are present. Musculoskeletal: No peripheral edema. No CVA tenderness. Some mild paraspinal tenderness in the right lower back. Integumentary: No cyanosis. Neurological: The patient is awake and alert. No focal deficits.Normal motor and sensation in lower extremities bilaterally. Psychiatric: Normal affect. Medical Decision & Procedures ER Provider Diagnostic Interpretation: Radiology results as stated below per my review and the radiologist's interpretation: LUMBAR SPINE CT CT DOSE: HISTORY: Right-sided back pain. TECHNIQUE: Multiaxial CT images of the lumbar spine were performed and reformatted in the sagittal and coronal plane without the use of contrast. COMPARISON: None. FINDINGS: No fractures. No subluxation. Paraspinal soft tissues are unremarkable. Partially calcified focal central disc protrusion at L5-S1 resulting in mild central canal narrowing. Moderate disc space narrowing at L5-S1. IMPRESSION: No fractures within the lumbar spine. Partially calcified focal central disc protrusion at L5-S1 resulting in mild central canal narrowing. Electronically signed by: Pranav Piña M.D. 02/12/2017 5:26 PM Dictated Date/Time: 02/12/2017 5:21 PM ABDOMEN AND PELVIS CT WITHOUT CONTRAST CT DOSE: 884.13 mGy.cm HISTORY: Right-sided flank pain. TECHNIQUE: Multiaxial CT images of the abdomen and pelvis were performed without the use of intravenous and oral contrast according to the standard department stone protocol. COMPARISON STUDY: Abdomen and pelvis CT 09/22/2016. FINDINGS: Stable 5 mm subpleural nodule within the left lower lobe on image 12. No fractures within the visualized osseous structures. The unenhanced liver, spleen, adrenal glands, gallbladder, and pancreas are unremarkable. No renal stones or hydronephrosis. No bowel wall thickening or obstruction. Normal appendix. The bladder, uterus, bilateral adnexa are unremarkable. IMPRESSION: 1. No renal stones or hydronephrosis. 2. Normal appendix. 3. No bowel wall thickening or obstruction. 4. Stable 5 mm subpleural indeterminate pulmonary nodule within the left lower lobe. Electronically signed by: Pranav Piña M.D. 02/12/2017 5:34 PM Dictated Date/Time: 02/12/2017 5:26 PM Laboratory Results 02/12/17 16:40 Red Blood Count 4.58, Mean Corpuscular Volume 91.0, Mean Corpuscular Hemoglobin 31.0, Mean Corpuscular Hemoglobin Concent 34.1, Mean Platelet Volume 12.9, Neutrophils (%) (Auto) 61.1, Lymphocytes (%) (Auto) 28.9, Monocytes (%) (Auto) 7.5, Eosinophils (%) (Auto) 1.8, Basophils (%) (Auto) 0.5, Neutrophils # (Auto) 5.35, Lymphocytes # (Auto) 2.53, Monocytes # (Auto) 0.66, Eosinophils # (Auto) 0.16, Basophils # (Auto) 0.04 02/12/17 16:40 Test 02/12/17 16:40 White Blood Count 8.76 K/uL (4.8-10.8) Red Blood Count 4.58 M/uL (4.2-5.4) Hemoglobin 14.2 g/dL (12.0-16.0) Hematocrit 41.7 % (37-47) Mean Corpuscular Volume 91.0 fL (80-100) Mean Corpuscular Hemoglobin 31.0 pg (25-34) Mean Corpuscular Hemoglobin Concent 34.1 g/dl (32-36) Platelet Count 216 K/uL (130-400) Mean Platelet Volume 12.9 fL (7.4-10.4) Neutrophils (%) (Auto) 61.1 % Lymphocytes (%) (Auto) 28.9 % Monocytes (%) (Auto) 7.5 % Eosinophils (%) (Auto) 1.8 % Basophils (%) (Auto) 0.5 % Neutrophils # (Auto) 5.35 K/uL (1.4-6.5) Lymphocytes # (Auto) 2.53 K/uL (1.2-3.4) Monocytes # (Auto) 0.66 K/uL (0.11-0.59) Eosinophils # (Auto) 0.16 K/uL (0-0.5) Basophils # (Auto) 0.04 K/uL (0-0.2) RDW Standard Deviation 43.3 fL (36.4-46.3) RDW Coefficient of Variation 12.9 % (11.5-14.5) Immature Granulocyte % (Auto) 0.2 % Immature Granulocyte # (Auto) 0.02 K/uL (0.00-0.02) Urine Color YELLOW Urine Appearance CLEAR (CLEAR) Urine pH 7.5 (4.5-7.5) Urine Specific [place] 1.013 (1.000-1.030) Urine Protein NEG (NEG) Urine Glucose (UA) NEG (NEG) Urine Ketones NEG (NEG) Urine Occult Blood NEG (NEG) Urine Nitrite NEG (NEG) Urine Bilirubin NEG (NEG) Urine Urobilinogen NEG (NEG) Urine Leukocyte Esterase NEG (NEG) Urine Test NEG (NEG) Anion Gap 6.0 mmol/L (3-11) Est Creatinine Clear Calc Drug Dose 152.6 ml/min Estimated GFR () 142.6 Estimated GFR (Non- 123.0 BUN/Creatinine Ratio 14.8 (10-20) Calcium Level 8.6 mg/dl (8.5-10.1) Total Bilirubin 0.2 mg/dl (0.2-1) Direct Bilirubin < 0.1 mg/dl (0-0.2) Aspartate Amino Transf (AST/SGOT) 7 U/L (15-37) Alanine Aminotransferase (ALT/SGPT) 17 U/L (12-78) Alkaline Phosphatase 62 U/L (45-117) Total Protein 6.0 gm/dl (6.4-8.2) Albumin 3.0 gm/dl (3.4-5.0) Lipase 155 U/L (73-393) Laboratory results as reviewed by me. Medications Administered Medications (Trade) Dose Ordered Sig/Hellen Route Start Time Stop Time Status Last Admin Dose Admin Morphine Sulfate (MoRPHine SULFATE INJ) 4 mg ONE STAT IV 02/12/17 16:12 02/12/17 16:13 DC 02/12/17 16:39 4 MG Ondansetron HCl 4 mg 4 mg NOW STAT IV 02/12/17 16:12 02/12/17 16:13 DC 02/12/17 16:38 4 MG Sodium Chloride (Nss 1000ml) 1,000 ml @ 999 mls/hr Q1H1M STAT IV 02/12/17 16:12 02/12/17 17:12 DC 02/12/17 16:39 999 MLS/HR Hydromorphone HCl (Dilaudid Inj) 0.5 mg NOW STAT IV 02/12/17 17:27 02/12/17 17:28 DC 02/12/17 17:27 0.5 MG ED Course 1605: The patient was evaluated in room C9. A complete history and physical exam was performed. 1612: NSS 1000 ml @ 999 mls/hr IV, Zofran Inj 4 mg IV, Morphine Sulfate 4 mg IV. 1725: I reevaluated the patient. She was feeling better, but says that the pain is coming back. 1727: Dilaudid Inj 0.5 mg IV. 1744: Upon reevaluation, the patient appeared to have improvement of her symptoms. I discussed tonight's findings with her. I recommended she follow up with her PCP. She verbalized agreement of the treatment plan. She was discharged home. Medical Decision This is a 36-year-old female presents with right lower back pain rating down her hip. Differential diagnosis includes lumbar disc disease, radiculopathy, compression fracture, pathologic fracture, kidney stone, UTI, retrocecal appendicitis. I did perform a limited focused review of portions of the patient 's old chart on the electronic medical record. The patient had a gallbladder ultrasound in November which was normal. I did evaluate the patient as noted above. IV access was established. I did treat the patient with IV morphine, Zofran and normal saline. I did order and personally review the patient's urinalysis as described above. Urine test is negative. I did order and review the patient's blood work as noted in the electronic medical record. Her lab work is unremarkable. I did order a CT of the abdomen and pelvis and lumbar spine. I did review the images myself as well as the radiology report as described above. The CT of the abdomen demonstrates no acute process. She does have a pulmonary nodule which was present on previous CT. She does have lumbar disc disease on CT of her LS spine. I did discuss the test results with the patient. She was given Dilaudid 0.5 mg for additional pain. She was discharged with a prescription for OxyIR given precautions regarding this medication. She will follow with her doctor regarding her symptoms as well as her pulmonary nodule. She does state she will try to quit smoking. She was given return instructions as outlined below. [place] Drug Monitoring Program Search Results: patient reviewed within database Drug Monitoring Findings: No matching patient was found Impression Primary Impression: Right low back pain Additional Impressions: Pulmonary nodule, left Lumbar disc disease Scribe Attestation The scribe's documentation has been prepared under my direct and personally reviewed by me in its entirety. I confirm that the note above accurately reflects all work, treatment, procedures, and medical decision making performed by me. Departure Information Dispostion Home / Self-Care Prescriptions Oxycodone Ir (Roxicodone Ir) 5 Mg Tab 5 MG PO Q4H Y for Pain, #20 TAB Prov: Mo Hernandez M.D. 02/12/17 Referrals Apolinar Wood M.D. (PCP) Forms HOME CARE DOCUMENTATION FORM, IMPORTANT VISIT INFORMATION Patient Instructions ED Back Pain Acute Chronic, My [facility] Additional Instructions You have been examined and treated today on an emergency basis only. This is not a substitute for, or an effort to provide, complete comprehensive medical care. It is impossible to recognize and treat all injuries or illnesses in a single emergency department visit. It is therefore important that you follow up closely with your physician. Call as soon as possible for an appointment. Return for worsening symptoms or if you develop fever, vomiting, abdominal pain , loss of control of your bowel or bladder, numbness or weakness to your legs, numbness to your private area, difficulty urinating, or any other concerning symptoms. Problem Qualifiers Primary Impression: Right low back pain Chronicity: acute Sciatica presence: with sciatica Sciatica laterality: sciatica of right side Qualified Codes: M54.41 - Lumbago with sciatica, right side
[2017-02-12] MEDS ORDERED: OXYCODONE IR HOME PACK PO ONE (18:15)
[2017-02-22] MEDS ORDERED: ADVIN10/60 INH (03:00)
[2017-02-22] MEDS ORDERED: FLUT0.15 NAE (03:02)
[2017-02-22] MEDS ORDERED: IMT50 PO (17:53)
[2017-02-22] MEDS ORDERED: SUMA1INJ5 INJ (17:53)
[2017-02-22] MEDS ORDERED: ALBU18002 INH (20:04)
[2017-02-22] MEDS ORDERED: OMEP20CA9 PO (20:37)
[2017-02-22] MEDS ORDERED: IBUP-103 PO (20:37)
[2017-08-20] MEDS ORDERED: DIPH-437 PO (10:54)
[2017-08-20] MEDS ORDERED: CYCL10TA6 PO (11:56)
== END 2017-02-12 18:17 | disposition home or self-care (01) ==
LOC: C.EDB 15:05 → C.EDC 18:17
DX: M54.5 Low back pain (principal); R91.1 Solitary pulmonary nodule; M51.36 Other intervertebral disc degeneration, lumbar region; J45.909 Unspecified asthma, uncomplicated; F17.200 Nicotine dependence, unspecified, uncomplicated; Z83.3 Family history of diabetes mellitus; Z82.49 Family history of ischemic heart disease and other diseases of the circulatory system

== ENCOUNTER 2017-03-17 11:44 | Emergency (ER) | payer OTHER ==
[~2017-03-17] VITALS: Ht 162.6 cm; Wt 81.1 kg
[~2017-03-17 11:44] MED LIST changes: +ADVIN10/60 INH; +ALBU18002 INH; +FLUT0.15 NAE; +IBUP-103 PO; -IBUP-1428 PO; +IMT50 PO; +OMEP20CA9 PO; +SUMA1INJ5 INJ; -ZFRODT/8 PO
[2017-03-17 11:47] VITALS: TEMP 36.8; Ht 162.6 cm; Wt 81.1 kg
[2017-03-17] MEDS ORDERED: HYDROCODONE/ACETAMOPHEN 5/325MG TAB PO STA (13:01)
[2017-03-17] MEDS ORDERED: PENI-82 PO (13:04)
--- NOTE | 2017-03-17 13:05 | EMERGENCY ROOM VISIT NOTE ---
ED Visit Note First contact with patient: 12:10 CHIEF COMPLAINT: Toothache HISTORY OF PRESENT ILLNESS: This 36-year-old female patient presented to the emergency department with a progressive toothache for past two days. The patient believes it is coming from the right upper teeth. The pain is now steady and severe and radiates to the face. The patient does not have a dentist appointment set up, but states she is arranging to have all of her upper teeth removed once her referral goes through. They rate their pain a 8/ 10 and the ibuprofen and Tylenol they have been taking has not relieved the pain. Denies facial swelling or fever. The patient denies any discharge from the mouth. Denies any difficulty breathing or swallowing REVIEW OF SYSTEMS: A 6 system review of systems was completed with positives and pertinent negatives listed in the HPI. ALLERGIES: See chart MEDICATIONS: See chart PMH: See chart SOCIAL HISTORY: Daily 1/2 ppd smoker. Denies alcohol, illicit drugs. PHYSICAL EXAM: Vitals are noted on the nurse's note and reviewed by myself. Vital signs stable. Temperature is wnl. GENERAL: Pleasant and cooperative, in no acute distress, non-diaphoretic, well-developed well-nourished. Mouth: The right upper incisor tooth is carious and the gum is swollen and tender around it, without any discharge or signs of an abscess. Poor dentition throughout the mouth with several previous extractions. The remainder of the pharynx and tonsils are without erythema, edema, or exudate. The airway is patent. There is no facial swelling, cervical or submandibular lymphadenopathy. The patient appears uncomfortable and in pain. The patient has overall poor dental hygiene. EARS: External auditory canals clear, tympanic membranes pearly balderrama without erythema or effusion bilaterally. ED COURSE: I examined the patient. She has concern for developing dental infection, but no palpable abscess or notable drainage. She is afebrile. No broken teeth noted. One [place] provided in the ER for pain control, Rx for PCN and patient was counseled to follow up closely with dentist, as she will require extraction of multiple teeth for long-term management, due to significant carries. She was provided with follow-up contact info for local dentist that will accept her insurance. Patient was also seen and discussed with Dr. Wolff, who agrees with assessment and plan. Problem List Medical Problems: (1) Acute bacterial tonsillitis Status: Resolved (2) Acute bacterial tonsillitis Status: Resolved (3) Acute tonsillitis Status: Resolved (4) Asthma Status: Chronic (5) Asthma, Unspecified Status: Chronic (6) Herniated disc Status: Chronic (7) Sore throat Status: Resolved (8) Sore throat Status: Resolved (9) Strep Sore Throat Status: Resolved (10) Tubal Ligation Status Status: Resolved Surgical Problems: (1) S/P tonsillectomy and adenoidectomy Status: Resolved Current/Historical Medications Scheduled Penicillin V Potassium (Veetids), 500 MG PO TID Scheduled PRN Albuterol Sulfate (Proair Respiclick), 2 PUFFS INH QID PRN for Asthma Symptoms Fluticasone Prop/Salmeterol (Advair Diskus 100/50 60 Dose), 1 PUFF INH BID PRN for SOB/Wheezing Fluticasone Propionate (Nasal) (Flonase Allergy Relief), 2 SPRAYS ELINA DAILY PRN for Allergy Symptoms Ibuprofen Tab (Advil), 800 MG PO Q8 PRN for Pain Sumatriptan Succinate (Sumatriptan Succinate), 50 MG PO UD PRN for Migraine Sumatriptan Succinate (Sumatriptan Succinate), 6 MG INJ UD PRN for Migraine Allergies Coded Allergies: Cortisone (Verified Allergy, Severe, Rash/hives, 03/17/17) "LOOKED LIKE I WAS SUNBURNT ALL OVER". Reported by PT. Sulfa Antibiotics (Verified Allergy, Unknown, RASH, 03/17/17) Vital Signs Date Time Temp Pulse Resp B/P Pulse Ox O2 Delivery O2 Flow Rate FiO2 03/17/17 13:59 68 18 100/44 97 03/17/17 11:47 36.8 98 18 96 Room Air Medications Administered Medications (Trade) Dose Ordered Sig/Hellen Route Start Time Stop Time Status Last Admin Dose Admin Acetaminophen/ Hydrocodone Bitart ([place] 5/325 Tab) 1 tab NOW STAT PO 03/17/17 13:01 03/17/17 13:03 DC 03/17/17 13:12 1 TAB Departure Information Impression Primary Impression: Infected dental carries Dispostion Home / Self-Care Condition GOOD Prescriptions Penicillin V Potassium (Veetids) 500 Mg Tab 500 MG PO TID for 10 Days, #30 TAB Prov: Dayanara Covarrubias CRNP 03/17/17 Referrals Apolinar Wood M.D. (PCP) Lebron Washburn D.M.D Patient Instructions My [facility] Additional Instructions Take the Penicillin as prescribed for the full 10 days. This is to treat for infection. You may take ibuprofen 800 mg, alternating with extra strength Tylenol 1000 mg every 8 hours as needed for pain. Apply warm compresses to the area to help with pain as well. See a dentist as soon as possible for definitive care. Call today to set up an appointment. You may call Dr. Washburn's office for a sooner appointment if you are unable to get in with your own dentist. Return sooner if shortness of breath, severe facial swelling, fever/chills, discharge from the mouth, or changes in vision and hearing occur.
[2017-03-17 13:59] VITALS: BP 100/44; PULSE 68; O2SAT 97
--- NOTE | 2017-03-17 15:46 | EMERGENCY ROOM VISIT NOTE ---
ED Visit Note First contact with patient: 12:10 I have personally seen and evaluated the patient with the PA. I agree with the diagnosis and management decisions and have been personally involved in the case. Please see BRIELLE Nash's notes for further details of the history, physical and visit.
[2017-08-20] MEDS ORDERED: DIPH-437 PO (10:54)
[2017-08-20] MEDS ORDERED: CYCL10TA6 PO (11:56)
== END 2017-03-17 14:01 | disposition home or self-care (01) ==
LOC: C.EDB 11:45 → C.EDD 14:01
DX: K02.9 Dental caries, unspecified (principal); J45.909 Unspecified asthma, uncomplicated; F17.210 Nicotine dependence, cigarettes, uncomplicated; M53.80 Other specified dorsopathies, site unspecified

== ENCOUNTER 2017-04-08 11:05 | Emergency (ER) | payer OTHER ==
[~2017-04-08] VITALS: Ht 162.6 cm; Wt 81.0 kg
[~2017-04-08 11:05] MED LIST changes: -OMEP20CA9 PO
[2017-04-08 11:07] VITALS: TEMP 37.1; Ht 162.6 cm; Wt 81.0 kg
[2017-04-08] MEDS ORDERED: OXYCODONE/ACETAMINOPHEN 5-325 TAB PO STA (12:28)
--- NOTE | 2017-04-08 14:38 | DIAGNOSTIC IMAGING REPORT ---
LUMBAR SPINE MRI HISTORY: Paresthesias L leg paraphemias, bowel incontinence TECHNIQUE: Multiplanar multisequence MRI of the lumbar spine was performed without the use of contrast. COMPARISON: 02/02/2016 FINDINGS: For the purpose of the report the L5-S1 disc space will be located on axial image 27 of 30. Posterior disc herniation L5-S1 slightly in 37 the prior study. L1-L2: No significant central canal or neural foraminal narrowing. L2-L3: No significant central canal or neural foraminal narrowing. L3-L4: No significant central canal or neural foraminal narrowing. L4-L5: No significant central canal or neural foraminal narrowing. L5-S1: Moderate left central disc herniation L5-S1 with moderate impact left central aspect anterior thecal sac. Minimal narrowing left neuroforamina. Findings of progressive from the prior exam. IMPRESSION: Moderate left central disc herniation L5-S1 slightly increased in prominence from the prior study. Electronically signed by: Jose Day M.D. 04/08/2017 2:36 PM Dictated Date/Time: 04/08/2017 2:32 PM
[2017-04-08] MEDS ORDERED: METH4PAK PO (15:14)
[2017-04-08] MEDS ORDERED: KETO10TA PO (15:14)
[2017-04-08] MEDS ORDERED: DEXAMETHASONE SOD INJ 4 MG/ML VIAL IM ONE (15:15)
[2017-04-08 15:35] VITALS: BP 108/67; PULSE 60; O2SAT 94
--- NOTE | 2017-04-09 16:11 | EMERGENCY ROOM VISIT NOTE ---
ED Visit Note First contact with patient: 11:58 Chief Complaint: Lower back pain. History of Present Illness: Ms. Dumont is a 36 year old white female who ambulates into the ED complaining of lumbar back pain. Historically patient has a history of chronic lumbar back pain. She has been seen in this ED multiple times and has had 2 previous MRIs with the last one in 2015 showing mild disc disease at the L4-L5 area with mild canal narrowing. Her last imaging study was on 02/12/[address] for lumbar back pain and showed no fractures within the lumbar spine, partially calcified focal central disc protrusion at the L5-S1 area resulting in mild central canal narrowing. She reports she has seen in orthopedic back specialist if you years ago and no surgery was recommended because of her age. Patient reports for the last 5 days she has been having worsening lumbar back pain. She describes her pain as a pressure and sharp sensation. Her pain is primarily over the left side of the spine and into the paraspinous muscles. She rates her discomfort 6/10. Her pain is radiating into the buttocks and around the hip and into the anterior thigh and down the leg. Her pain worsens with all movements of the spine and palpation of the L4 through S1 area and left sided paraspinous muscles. She has not taken any medication for pain prior to arrival at the hospital. Associated with her pain she reports she is experienced paresthesias throughout the entire leg and 3 days ago she had an episode of bowel incontinence that has not returned. She denies fevers, chills, sweats, skin eruptions, skin color changes, abdominal pain, nausea, vomiting, diarrhea, constipation, rectal bleeding, black /tarry stools, urinary symptoms, hematuria, flank pain, vaginal bleeding, vaginal discharge, lower extremity weakness. Review of Systems: As noted above in history of present illness. All body systems were reviewed and found to be negative as noted above. Past Medical History: As previously noted, asthma, and status post tubal ligation, tonsillectomy and adenoidectomy. Current Medications: Medications Dose Route/Sig Max Daily Dose Days Date Category Dose Instructions Advil (Ibuprofen) 200 Mg Tab 800 Mg PO Q8 PRN 02/22/17 Reported Proair Respiclick (Albuterol Sulfate) 108 Mcg/Act Aer 2 Puffs INH QID PRN 12/04/16 Reported Sumatriptan Succinate 6 Mg/0.5 Ml Inj 6 Mg INJ UD PRN 09/27/16 Reported ADMINISTER UNDER SKIN, MAY REPEAT IN 2 HOURS IF NEEDED. TAKE NO MORE THAN 2 INJECTIONS/24 HOURS. MAXIMUM 2 DAYS/WEEK Sumatriptan Succinate 50 Mg Tab 50 Mg PO UD PRN 09/27/16 Reported TAKE 1 TABLET AT ONSET OF MIGRAINE, CAN REPEAT IN 2 HOURS IF NEEDED. MAXIMUM 2 DAYS PER WEEK. Flonase Allergy Relief (Fluticasone Propionate (Nasal)) 50 Mcg/Act Spr 2 Sprays ELINA DAILY PRN 12/12/15 Reported Advair Diskus 100/50 60 Dose (Fluticasone Prop/Salmeterol) 1 Ea Aerp 1 Puff INH BID PRN 12/12/15 Reported Allergies to Medications: Cortisone, sulfa. Social History: Patient is not employed; she feels safe in her home environment ; she admits to tobacco use and denies alcohol use. Physical Examination: Vital Signs: Date Time Temp Pulse Resp B/P (MAP) Pulse Ox O2 Delivery O2 Flow Rate FiO2 04/08/17 15:35 60 16 108/67 94 04/08/17 13:30 70 20 120/80 98 Room Air 04/08/17 11:07 37.1 85 16 120/67 98 Room Air GENERAL: 36-year-old female in mild to moderate distress due to pain, nontoxic- appearing, afebrile and hemodynamically stable. Patient is anxious and tearful. NEUROLOGICAL: Awake, alert and oriented to person, place and time. Answering questions appropriately and following commands. Normal gait. Good hand eye coordination. No focal motor or sensory deficits. SKIN: Warm, dry and pink. No soft tissue eruptions or trauma noted. HEENT: Atraumatic and normocephalic. BACK: No tenderness over the bony cervical and thoracic spine. Moderate tenderness to the left side of the bony spine in the L4 to S1 area. I do not appreciate any bony crepitus, swelling, step-offs or ecchymosis. There is also moderate tenderness in the paraspinous musculature without spasm. Decreased range of motion in all movements of the waist due to pain. No CVA tenderness. Questionable straight leg raise test as patient could not relax to have the test performed. THORAX: Lungs sounds are clear to auscultation and equal bilaterally with symmetrical chest wall. No wheezing, rales or rhonchi. No crepitus, tenderness , subcutaneous air or deformities noted. HEART: Regular rate and rhythm. No gallops, rubs or murmurs are appreciated. ABDOMEN: Soft and nontender. Positive bowel sounds in all quadrants. No guarding, rigidity or organomegaly. RECTAL: Patient does have an external hemorrhoid that is not actively bleeding. Normal rectal tone. No palpable rectal masses. Heme-negative stool. EXTREMITIES: Moves all extremities well on command and with purpose. All distal neurovascular statuses are intact and equal bilaterally. Lower Extremities: 2+ patellar and Achilles deep tendon reflexes intact and equal bilaterally. 4/5 muscle strength in flexion and extension and abduction and abduction of the hips, flexion and extension of the knees and plantar flexion and dorsiflexion of the ankles. Throughout the legs and feet the skin was warm and pink and capillary refill was brisk. She was able to distinguish light sensations through all dermatomes of the leg. ED Course: Patient is assessed as noted above. Patient's medication list was reviewed. Patient's case was reviewed with Dr. Wolff; we agreed on diagnostic approach, treatment, disposition and plan. Patient was given one Percocet 5/325 mg tablet by mouth for pain. Lumbar Spine MRI: Was reviewed by myself and read by the radiologist showing moderate left central disc herniation at the L5-S1 area with moderate impact left central aspect of the anterior thecal sac. Minimal narrowing of the left neural foramina. Patient was reassessed multiple times to her stay in the emergency department. Patient's case was reviewed with Dr. Wolff; we agreed on diagnostic approach, treatment, disposition and plan. Patient's case was consulted with Dr. Shailesh Catherine; he made recommendations for anti-inflammatory medications and steroids with office follow-up in approximately one week. Patient was offered steroids prior to discharge. Nursing was concerned because she reported that she was allergic to cortisone injections in the past. I did acknowledge this but the patient reported to me that she's had oral steroids in the past with no reactions. Nursing staff contacted the pharmacy who recommended after the injection she be monitored for approximately 30 minutes. Patient then rejected the steroids because she did not want to wait 30 minutes. I did make the recommendations that the patient be discharged with proper precautions and education about allergic reactions. Patient was then discharged without medications because she did not want to wait. Patient was educated about today's findings and instructed on his her treatment plan; she verbalizes understanding and agreement with this plan. Clinical Impression: L5-S1 moderate left central disc herniation. Decision-Making: Initially my differential diagnosis I considered disc herniation, muscle spasm, bony fracture, degenerative disc exacerbation and other causes. Disposition: Patient discharged home in stable condition; prior to departure she was reassessed and subjectively reported she was feeling the same. Plan: Patient was prescribed a Medrol Dosepak and Toradol for her symptoms; she was instructed on use of both of these medications. Patient was encouraged to follow-up with Dr. Catherine for definitive care and treatment. Patient was encouraged return the ED for worsening pain, fevers, additional episodes of bowel and bladder dysfunction, fevers or any new/concerning symptoms.
[2017-08-20] MEDS ORDERED: DIPH-437 PO (10:54)
[2017-08-20] MEDS ORDERED: CYCL10TA6 PO (11:56)
== END 2017-04-08 15:36 | disposition home or self-care (01) ==
LOC: C.EDB 11:06 → C.EDD 15:36
DX: M51.27 Other intervertebral disc displacement, lumbosacral region (principal); J45.909 Unspecified asthma, uncomplicated; Z72.0 Tobacco use

== ENCOUNTER 2017-09-02 12:10 | Emergency (ER) | payer OTHER ==
[~2017-09-02] VITALS: Ht 162.6 cm; Wt 78.7 kg
[~2017-09-02 12:10] MED LIST changes: +DIPH-437 PO
[2017-09-02 12:26] VITALS: TEMP 37.1; Ht 162.6 cm; Wt 78.7 kg
[2017-09-02] MEDS ORDERED: FENTANYL CITRATE INJ 50 MCG/1 ML 2 ML VIAL IV STA (12:40)
[2017-09-02] MEDS ORDERED: ONDANSETRON INJ 2 MG/ML 2 ML VIAL IV STA (12:40)
--- NOTE | 2017-09-02 12:50 | EMERGENCY ROOM VISIT NOTE ---
History Report prepared by Wilfredo: Clark Lopez Under the Supervision of: Dr. Tim Desir M.D. First contact with patient: 12:37 Chief Complaint: FLANK PAIN Stated Complaint: RT LOWER BELLY SIDE PAIN,SICK TO STOMACH History of Present Illness The patient is a 36 year old female who presents to the Emergency Room with complaints of worsening right flank pain starting yesterday. She currently rates her discomfort as a 6/10 in severity. The patient additionally states that she has some back pain, nausea, and fever. The patient denies any vomiting , urinary symptoms, rashes, leg swelling, history of appendicitis, history of kidney stones, recent falls, and new workout routines. She states that she has a history of ovarian cysts, though they have been on the left side. She denies any chance of . Source of History: patient Onset: yesterday Position: other (right flank) Symptom Intensity: 6/10 Timing: worsening Associated Symptoms: + fevers, + nausea, + back pain, No vomiting, No urinary symptoms, No rash Review of Systems See HPI for pertinent positives & negatives. A total of 10 systems reviewed and were otherwise negative. Past Medical & Surgical Medical Problems: (1) Acute bacterial tonsillitis (2) Acute bacterial tonsillitis (3) Acute tonsillitis (4) Asthma (5) Asthma, Unspecified (6) Herniated disc (7) Sore throat (8) Sore throat (9) Strep Sore Throat (10) Tubal Ligation Status Surgical Problems: (1) S/P tonsillectomy and adenoidectomy Family History Cancer Diabetes mellitus Hypertension Social History Smoking Status: Current Every Day Smoker Alcohol Use: none Drug Use: none Marital Status: in relationship Housing Status: lives with family Occupation Status: unemployed, disabled Current/Historical Medications Scheduled Acetaminophen/Diphenhydramine (Tylenol Pm), 1 TAB PO HS Scheduled PRN Albuterol Sulfate (Proair Respiclick), 2 PUFFS INH QID PRN for Asthma Symptoms Fluticasone Prop/Salmeterol (Advair Diskus 100/50 60 Dose), 1 PUFF INH BID PRN for SOB/Wheezing Fluticasone Propionate (Nasal) (Flonase Allergy Relief), 2 SPRAYS ELINA DAILY PRN for Allergy Symptoms Ibuprofen Tab (Advil), 800 MG PO Q8 PRN for Pain Sumatriptan Succinate (Sumatriptan Succinate), 50 MG PO UD PRN for Migraine Sumatriptan Succinate (Sumatriptan Succinate), 6 MG INJ UD PRN for Migraine Allergies Coded Allergies: Cortisone (Verified Allergy, Severe, Rash/hives, 09/02/17) "LOOKED LIKE I WAS SUNBURNT ALL OVER". Reported by PT. Sulfa Antibiotics (Verified Allergy, Unknown, RASH, 09/02/17) Physical Exam Vital Signs Date Time Temp Pulse Resp B/P (MAP) Pulse Ox O2 Delivery O2 Flow Rate FiO2 09/02/17 15:20 78 18 120/63 100 Room Air 09/02/17 13:19 70 18 103/69 99 Room Air 09/02/17 12:26 37.1 92 18 105/71 99 Room Air Physical Exam GENERAL: Patient is crying and in moderate distress. HEENT: No acute trauma, normocephalic atraumatic, mucous membranes moist, no nasal congestion, no scleral icterus. NECK: No stridor, no adenopathy, no meningismus, trachea is midline. LUNGS: No dyspnea. Clear to auscultation and equal bilaterally. No wheeze, no rhonchi. HEART: Regular rate and rhythm. No murmurs, rubs, gallops appreciated. ABDOMEN: There is moderate right lower quadrant tenderness to palpation. Soft, bowel sounds positive, no masses appreciated, no peritonitis. BACK: No midline tenderness, no CVA tenderness EXTREMITIES: Normal motion all extremities, no cyanosis, no edema. NEUROLOGIC: Alert and oriented, no acute motor or sensory deficits, no focal weakness, cranial nerves grossly intact. SKIN: No rash, no jaundice, no diaphoresis. Medical Decision & Procedures ER Provider Diagnostic Interpretation: Radiology results and stated below per my review and radiologist interpretation: ABD/PELVIS IV CONTRAST ONLY CLINICAL HISTORY: 36 years-old Female presenting with RLQ pain, vomiting, fevers. TECHNIQUE: Multidetector CT of the abdomen and pelvis was performed after the administration of intravenous contrast. IV contrast: 93 mL of Optiray 320. A dose lowering technique was used consistent with the principles of ALARA (as low as reasonably achievable). COMPARISON: 02/12/2017. CT DOSE (mGy.cm): The estimated cumulative dose is 457.73 mGy.cm. FINDINGS: Internal Audit Manager topogram: Unremarkable. Lung bases: Dependent groundglass opacity in the bilateral lower lobes as well as in the right middle lobe. Stable 5 mm solid subpleural nodule in the left lower lobe (series 3 image 1). Normal heart size. No pericardial or pleural effusion. Liver: Normal morphology. The superiormost portion of the right hepatic dome is excluded from the [id number]. No liver lesion. Patent hepatic vasculature. Biliary: No intrahepatic or extrahepatic biliary ductal dilatation. Normal gallbladder. Pancreas: Normal. Spleen: Normal. Adrenal glands: Normal. Kidneys and ureters: Normal. No hydronephrosis. Bladder: Normal. Pelvic organs: Uterus and ovaries normal. Dominant follicle noted on the left. Bowel: Normal appendix. No bowel obstruction. Peritoneal cavity: Trace free fluid in the pelvis. Lymph nodes: No enlarged lymph nodes in the abdomen or pelvis. Vasculature: Aorta and IVC patent and normal in caliber. Abdominal wall: Normal. Musculoskeletal: Normal. IMPRESSION: 1. No acute intra-abdominal pathology. 2. Groundglass opacities in the bilateral lower lobes and right middle lobe consistent with pneumonia. 3. Stable 5 mm solid left lower lobe pulmonary nodule. Electronically signed by: Apolinar Chen M.D. 09/02/2017 2:23 PM Dictated Date/Time: 09/02/2017 2:17 PM Laboratory Results 09/02/17 14:19 Red Blood Count 4.32, Mean Corpuscular Volume 89.6, Mean Corpuscular Hemoglobin 30.3, Mean Corpuscular Hemoglobin Concent 33.9, Mean Platelet Volume 12.0, Neutrophils (%) (Auto) 60.4, Lymphocytes (%) (Auto) 31.0, Monocytes (%) (Auto) 6.3, Eosinophils (%) (Auto) 1.7, Basophils (%) (Auto) 0.3, Neutrophils # (Auto) 6.95, Lymphocytes # (Auto) 3.58, Monocytes # (Auto) 0.73, Eosinophils # (Auto) 0.20, Basophils # (Auto) 0.04 09/02/17 12:53 Test 09/02/17 12:53 09/02/17 13:06 09/02/17 14:19 09/02/17 14:35 Est Creatinine Clear Calc Drug Dose 137.5 ml/min Estimated GFR () 138.4 Estimated GFR (Non- 119.4 BUN/Creatinine Ratio 16.8 (10-20) Calcium Level 8.7 mg/dl (8.5-10.1) Total Bilirubin 0.4 mg/dl (0.2-1) Direct Bilirubin 0.1 mg/dl (0-0.2) Aspartate Amino Transf (AST/SGOT) 14 U/L (15-37) Alanine Aminotransferase (ALT/SGPT) 17 U/L (12-78) Alkaline Phosphatase 68 U/L (45-117) Total Protein 6.9 gm/dl (6.4-8.2) Albumin 3.3 gm/dl (3.4-5.0) Lipase 121 U/L (73-393) Chemistry Specimen Hemolysis Bedside Hemoglobin 15.0 g/dl (12.0-16.0) Bedside Hematocrit 44 % (37-47) Bedside Sodium 139 mEq/L (135-144) Bedside Potassium 4.3 mEq/L (3.3-5.0) Bedside Chloride 106 mEq/L (101-112) Bedside Total CO2 24 mEq/l (24-31) Anion Gap 15.0 mmol/L (16-25) Bedside Blood Urea Nitrogen 11 mg/dl (7-18) Bedside Creatinine 0.6 mg/dl (0.6-1.3) Bedside Glucose (other) 78 mg/dl (70-99) Bedside Ionized Calcium (Richar) 1.16 mmol/l (1.12-1.32) White Blood Count 11.53 K/uL (4.8-10.8) Red Blood Count 4.32 M/uL (4.2-5.4) Hemoglobin 13.1 g/dL (12.0-16.0) Hematocrit 38.7 % (37-47) Mean Corpuscular Volume 89.6 fL (80-100) Mean Corpuscular Hemoglobin 30.3 pg (25-34) Mean Corpuscular Hemoglobin Concent 33.9 g/dl (32-36) Platelet Count 177 K/uL (130-400) Mean Platelet Volume 12.0 fL (7.4-10.4) Neutrophils (%) (Auto) 60.4 % Lymphocytes (%) (Auto) 31.0 % Monocytes (%) (Auto) 6.3 % Eosinophils (%) (Auto) 1.7 % Basophils (%) (Auto) 0.3 % Neutrophils # (Auto) 6.95 K/uL (1.4-6.5) Lymphocytes # (Auto) 3.58 K/uL (1.2-3.4) Monocytes # (Auto) 0.73 K/uL (0.11-0.59) Eosinophils # (Auto) 0.20 K/uL (0-0.5) Basophils # (Auto) 0.04 K/uL (0-0.2) RDW Standard Deviation 44.5 fL (36.4-46.3) RDW Coefficient of Variation 13.5 % (11.5-14.5) Immature Granulocyte % (Auto) 0.3 % Immature Granulocyte # (Auto) 0.03 K/uL (0.00-0.02) Urine Color YELLOW Urine Appearance CLEAR (CLEAR) Urine pH 8.5 (4.5-7.5) Urine Specific [place] > 1.045 (1.000-1.030) Urine Protein NEG (NEG) Urine Glucose (UA) NEG (NEG) Urine Ketones NEG (NEG) Urine Occult Blood NEG (NEG) Urine Nitrite NEG (NEG) Urine Bilirubin NEG (NEG) Urine Urobilinogen NEG (NEG) Urine Leukocyte Esterase NEG (NEG) Urine WBC (Auto) 5-10 /hpf (0-5) Urine RBC (Auto) 0-4 /hpf (0-4) Urine Epithelial Cells (Auto) >30 /lpf (0-5) Urine Bacteria (Auto) 1+ (NEG) Urine Pathogenic Casts /lpf (0) Urine Test NEG (NEG) Laboratory results as reviewed by me. Medications Administered Medications (Trade) Dose Ordered Sig/Hellen Route Start Time Stop Time Status Last Admin Dose Admin Fentanyl Citrate (Fentanyl Inj) 75 mcg NOW STAT IV 09/02/17 12:40 09/02/17 12:42 DC 09/02/17 13:16 75 MCG Ondansetron HCl (Zofran Inj) 4 mg NOW STAT IV 09/02/17 12:40 09/02/17 12:42 DC 09/02/17 13:16 4 MG Sodium Chloride 500 ml @ 999 mls/hr Q31M STAT IV 09/02/17 13:06 09/02/17 13:36 DC 09/02/17 13:16 999 MLS/HR Oxycodone HCl (Roxicodone Immediate Rel 5MG Home Pack) 1 homepack UD ONCE PO 09/02/17 15:30 09/02/17 15:31 DC 09/02/17 15:38 1 HOMEPACK Oxycodone HCl (Roxicodone Immediate Rel Tab) 5 mg NOW STAT PO 09/02/17 15:28 09/02/17 15:29 DC 09/02/17 15:39 5 MG ED Course 1237: The patient was evaluated in room C1. A complete history and physical exam was performed. 1240: Zofran 4mg IV, Fentanyl 75mcg IV 1306: Sodium Chloride 500 ml @ 999 mls/hr 1438: I reevaluated the patient, and she is stable. 1526: I reassessed the patient, and her pain has increased slightly, though she looks well. I discussed home narcotic medications and their restrictions. The patient will be discharged home. 1528: Oxycodone HCl 5mg PO 1530: Oxycodone HCl 5mg 1 Home Pack PO Medical Decision Differential: Appendicitis, , MSK, Diverticulitis, UTI, Renal Colic, Bowel Obstruction, Aortic Pathology, Ovarian Cyst, Ectopic , Torsion, amongst other pathologies entertained. 36 arrives with RLQ abdominal pain wrapping from back. She is quite uncomfortable. Pain is not pelvic location. She is not febrile. Labs are unremarkable. She is not . She has no mass, appendicitis, stones nor other acute findings on CT. I can not find obvious cause of her pain. She is stable and while looks well notes continued pain thus some further pain medications. Follow up with PCP but if worsening or no improvement, RTED for repeat evaluation. [place] Drug Monitoring [place] Search Results: patient reviewed within database, see additional documentation Drug Monitoring Findings: The patient has periodic narcotic prescriptions over the past year. Nothing within the last month. Medication Reconcilliation Current Medication List: was personally reviewed by me Blood Pressure Screening Patient's blood pressure: Normal blood pressure Impression Primary Impression: Right flank pain Scribe Attestation The scribe's documentation has been prepared under my direction and personally reviewed by me in its entirety. I confirm that the note above accurately reflects all work, treatment, procedures, and medical decision making performed by me. Departure Information Dispostion Home / Self-Care Referrals Apolinar Wood M.D. (PCP) Forms HOME CARE DOCUMENTATION FORM, IMPORTANT VISIT INFORMATION Patient Instructions ED Flank Pain Uncertain Cause, My [facility] Additional Instructions You have been examined and treated today on an emergency basis only. This is not a substitute for, or an effort to provide, complete comprehensive medical care. It is impossible to recognize and treat all injuries or illnesses in a single emergency department visit. It is therefore important that you follow up closely with your Primary Physician. Call as soon as possible for an appointment so you can review all labs, imaging and other testing that you had. Return to Emergency Department, call 911 or seek immediate medical attention if you feel your symptoms are worsening. You have received a narcotic pain medication. These medications may cause drowsiness and should not be used with other sedative medications. Do not drive , drink alcohol, perform dangerous activities, nor make important decisions after taking these medications. long term care administrator use or inappropriate use may lead to addiction.
[2017-09-02] MEDS ORDERED: SODIUM CHLORIDE 0.9% 500ML 500 ML IV STA (13:06)
[2017-09-02 13:19] LABS: ISTAT CREATININE 0.6 mg/dl (0.6-1.3); ISTAT IONIZED CALCIUM 1.16 mmol/l (1.12-1.32)
[2017-09-02 13:38] LABS: BUN/CREATININE RATIO 16.8 (10-20); CALCIUM 8.7 mg/dl (8.5-10.1); POTASSIUM 4.1 mmol/L (3.5-5.1)
[2017-09-02 13:47] LABS: CREATININE 0.58 mg/dl (0.60-1.20)
[2017-09-02] MEDS ORDERED: OPTIRAY 320 IV PRN (14:00)
--- NOTE | 2017-09-02 14:24 | DIAGNOSTIC IMAGING REPORT ---
ABD/PELVIS IV CONTRAST ONLY CLINICAL HISTORY: 36 years-old Female presenting with RLQ pain, vomiting, fevers. TECHNIQUE: Multidetector CT of the abdomen and pelvis was performed after the administration of intravenous contrast. IV contrast: 93 mL of Optiray 320. A dose lowering technique was used consistent with the principles of ALARA (as low as reasonably achievable). COMPARISON: 02/12/2017. CT DOSE (mGy.cm): The estimated cumulative dose is 457.73 mGy.cm. FINDINGS: Receiving Operator topogram: Unremarkable. Lung bases: Dependent groundglass opacity in the bilateral lower lobes as well as in the right middle lobe. Stable 5 mm solid subpleural nodule in the left lower lobe (series 3 image 1). Normal heart size. No pericardial or pleural effusion. Liver: Normal morphology. The superiormost portion of the right hepatic dome is excluded from the [id number]. No liver lesion. Patent hepatic vasculature. Biliary: No intrahepatic or extrahepatic biliary ductal dilatation. Normal gallbladder. Pancreas: Normal. Spleen: Normal. Adrenal glands: Normal. Kidneys and ureters: Normal. No hydronephrosis. Bladder: Normal. Pelvic organs: Uterus and ovaries normal. Dominant follicle noted on the left. Bowel: Normal appendix. No bowel obstruction. Peritoneal cavity: Trace free fluid in the pelvis. Lymph nodes: No enlarged lymph nodes in the abdomen or pelvis. Vasculature: Aorta and IVC patent and normal in caliber. Abdominal wall: Normal. Musculoskeletal: Normal. IMPRESSION: 1. No acute intra-abdominal pathology. 2. Groundglass opacities in the bilateral lower lobes and right middle lobe consistent with pneumonia. 3. Stable 5 mm solid left lower lobe pulmonary nodule. Electronically signed by: Apolinar Chen M.D. 09/02/2017 2:23 PM Dictated Date/Time: 09/02/2017 2:17 PM
[2017-09-02 14:32] LABS: BASO % 0.3 %; BASO ABS # 0.04 K/uL (0-0.2); COMPLETE YES; EOS % 1.7 %; HEMATOCRIT 38.7 % (37-47); IG% 0.3 %; LYMPH ABS # 3.58 K/uL (1.2-3.4); MEAN CELL VOLUME 89.6 fL (80-100); MEAN CORPUSCULAR HEMOGLOBIN 30.3 pg (25-34); MEAN CORPUSCULAR HGB CONC 33.9 g/dl (32-36); MONO % 6.3 %; NEUT % 60.4 %; PLATELET COUNT 177 K/uL (130-400); RED BLOOD COUNT 4.32 M/uL (4.2-5.4); WHITE BLOOD COUNT 11.53 K/uL (4.8-10.8)
[2017-09-02 15:01] LABS: URINE APPEARANCE CLEAR (CLEAR); URINE BILIRUBIN NEG (NEG); URINE COLOR YELLOW; URINE EPITHELIAL CELL AUTO >30 /lpf (0-5); URINE NITRITE NEG (NEG); URINE PH 8.5 (4.5-7.5); URINE SPECIFIC GRAVITY > 1.045 (1.000-1.030); UROBILINOGEN NEG (NEG); ZZUR CULT IF INDIC CLEAN CATCH YES
[2017-09-02 15:03] LABS: MANUAL MICROSCOPIC REQUIRED? NO; REVIEW REQ? YES
[2017-09-02 15:20] VITALS: BP 120/63; PULSE 78; O2SAT 100
[2017-09-02] MEDS ORDERED: OXYCODONE HCL IR 5 MG TAB (IMMEDIATE RELEASE) PO STA (15:28)
[2017-09-02] MEDS ORDERED: OXYCODONE IR HOME PACK PO ONE (15:30)
== END 2017-09-02 15:49 | disposition home or self-care (01) ==
LOC: C.EDB 12:11 → C.EDC 15:49
DX: R10.31 Right lower quadrant pain (principal); N83.209 Unspecified ovarian cyst, unspecified side; J45.909 Unspecified asthma, uncomplicated; Z83.3 Family history of diabetes mellitus; Z82.49 Family history of ischemic heart disease and other diseases of the circulatory system; F17.200 Nicotine dependence, unspecified, uncomplicated

== ENCOUNTER 2017-10-03 18:27 | Emergency (ER) | payer OTHER ==
[~2017-10-03] VITALS: Ht 162.6 cm; Wt 81.0 kg
[2017-10-03 18:34] VITALS: BP 112/72; PULSE 83; TEMP 36.9; O2SAT 97; Ht 162.6 cm; Wt 81.0 kg
[2017-10-03] MEDS ORDERED: AMOX875T PO (18:55)
[2017-10-03] MEDS ORDERED: AMOXICILLIN/CLAVULANATE TAB 875 MG TAB PO ONE (19:00)
--- NOTE | 2017-10-03 19:29 | EMERGENCY ROOM VISIT NOTE ---
History First contact with patient: 18:41 Chief Complaint: SORETHROAT Stated Complaint: SWOLLEN THROAT,PAIN IN R SIDE OF HEAD AND EAR History of Present Illness The patient is a 36 year old female who presents to the Emergency Room with complaints of severe right ear pain and throat pain. Her symptoms have been ongoing for the past 2 days. She denies any significant runny nose, sinus congestion or cough. The patient is status post tonsillectomy. She rates her discomfort an 8 out of 10. She has taken ibuprofen and Tylenol without relief. Review of Systems 10 system review was performed and was negative except for pertinent positives and negatives as indicated in history of present illness Past Medical/Surgical History Medical Problems: (1) Acute bacterial tonsillitis (2) Acute bacterial tonsillitis (3) Acute tonsillitis (4) Asthma (5) Asthma, Unspecified (6) Herniated disc (7) Sore throat (8) Sore throat (9) Strep Sore Throat (10) Tubal Ligation Status Surgical Problems: (1) S/P tonsillectomy and adenoidectomy Family History Cancer Diabetes mellitus Hypertension Social History Smoking Status: Current Every Day Smoker Alcohol Use: none Drug Use: none Marital Status: in relationship Housing Status: lives with family Occupation Status: unemployed, disabled Current/Historical Medications Scheduled Acetaminophen/Diphenhydramine (Tylenol Pm), 1 TAB PO HS Amoxicillin & Pot Clavulanate (Augmentin 875-125 mg), 1 TAB PO BID Scheduled PRN Albuterol Sulfate (Proair Respiclick), 2 PUFFS INH QID PRN for Asthma Symptoms Fluticasone Prop/Salmeterol (Advair Diskus 100/50 60 Dose), 1 PUFF INH BID PRN for SOB/Wheezing Fluticasone Propionate (Nasal) (Flonase Allergy Relief), 2 SPRAYS ELINA DAILY PRN for Allergy Symptoms Ibuprofen Tab (Advil), 800 MG PO Q8 PRN for Pain Sumatriptan Succinate (Sumatriptan Succinate), 50 MG PO UD PRN for Migraine Sumatriptan Succinate (Sumatriptan Succinate), 6 MG INJ UD PRN for Migraine Physical Exam Vital Signs Date Time Temp Pulse Resp B/P (MAP) Pulse Ox O2 Delivery O2 Flow Rate FiO2 10/03/17 18:34 36.9 83 20 112/72 97 Room Air Physical Exam CONSTITUTIONAL: Healthy and well nourished. Alert and oriented X 3 with a flat affect. HEENT: Normocephalic, atraumatic. Pupils equal, round and reactive. Examination of the right ear shows complete TM erythema. Bony landmarks and light reflexes are absent. No perforation noted. Examination of the left ear also shows notable bulging and performing erythema. OROPHARYNX: Minimal posterior pharyngeal erythema. NECK: Full active range of motion without discomfort. LYMPHATICS: No cervical chain adenopathy. RESPIRATORY: Clear to auscultation bilaterally with no wheezing, crackles, rhonchi or stridor. CARDIOVASCULAR: Regular rate and rhythm with no murmurs, rubs or gallops. INTEGUMENTARY: No rash or other significant dermatologic conditions noted. NEUROLOGIC: Facial sensations are intact. Medical Decision & Procedures ED Course Patient history and physical exam were performed. Nurse's notes were reviewed. Vital signs were reviewed and were normal. Physical exam is consistent with a right otitis media. The patient was provided a prescription for Augmentin, and was administered and Augmentin 875 mg in the emergency department after reports that she will not be able to get to the pharmacy until tomorrow. The patient requested something for pain. Review of medical records shows that the patient is currently on a no narcotics treatment plan. The patient was offered a prescription for an NSAIDs, but was told that she can achieve the same relief by alternating ibuprofen and Tylenol. The patient reports that she does have a numbing drop for the ear at home. The patient was advised that these drops are no longer commercially available at any pharmacy. She was encouraged to follow- up with her PCP as needed for further pain management, and have the year recheck in 7-10 days, sooner with any drainage from the ear. The patient was happy with plan of care, voice understanding of all discharge instructions, refused any additional ibuprofen or Tylenol while in the emergency department, and rated her discomfort a 5 out of 10 at the conclusion of my exam. Medical Decision [place] Drug Monitoring Program Search Results: patient reviewed within database, see additional documentation Medication Reconcilliation Current Medication List: was personally reviewed by me Blood Pressure Screening Patient's blood pressure: Normal blood pressure Impression Primary Impression: Right otitis media Additional Impression: Acute pharyngitis Departure Information Dispostion Home / Self-Care Prescriptions Amoxicillin & Pot Clavulanate (Augmentin 875-125 mg) 1 Tab Tab 1 TAB PO BID for 10 Days, #20 TAB Prov: Jaxon Ramires PA 10/03/17 Forms HOME CARE DOCUMENTATION FORM, IMPORTANT VISIT INFORMATION Patient Instructions [facility], ED Otitis Media Acute Adult Additional Instructions Complete all Augmentin antibiotics as prescribed. Ibuprofen 800 mg and/or Tylenol 1000 mg every 8 hours. You may also alternate these medications for more effective pain relief: Ibuprofen --4 HRS--> Tylenol --4 HRS--> ibuprofen --4 HRS--> Tylenol .... Follow-up with your family doctor as needed for further pain management, and have your ears rechecked in 7-10 days. See your family doctor sooner with any drainage from the ears. Problem Qualifiers Primary Impression: Right otitis media Otitis media type: suppurative Chronicity: acute Recurrence: not specified as recurrent Spontaneous tympanic membrane rupture: without spontaneous rupture Qualified Codes: H66.001 - Acute suppurative otitis media without spontaneous rupture of ear drum, right ear Additional Impression: Acute pharyngitis Pharyngitis/tonsillitis etiology: unspecified etiology Qualified Codes: J02.9 - Acute pharyngitis, unspecified
== END 2017-10-03 19:12 | disposition home or self-care (01) ==
LOC: C.EDB 18:28 → C.EDD 19:12
DX: H66.001 Acute suppurative otitis media without spontaneous rupture of ear drum, right ear (principal); J02.9 Acute pharyngitis, unspecified; J45.909 Unspecified asthma, uncomplicated; F17.200 Nicotine dependence, unspecified, uncomplicated; Z86.19 Personal history of other infectious and parasitic diseases; Z83.3 Family history of diabetes mellitus; Z82.49 Family history of ischemic heart disease and other diseases of the circulatory system

== ENCOUNTER 2018-01-30 13:27 | Emergency (ER) | payer OTHER ==
[~2018-01-30] VITALS: Ht 162.6 cm; Wt 84.5 kg
[2018-01-30 13:46] VITALS: BP 106/54; PULSE 92; TEMP 36.9; O2SAT 96; Ht 162.6 cm; Wt 84.5 kg
== END 2018-01-30 14:56 | disposition left against medical advice (07) ==
LOC: C.EDB 13:30
DX: J02.9 Acute pharyngitis, unspecified (principal)

== ENCOUNTER 2018-02-14 11:36 | Emergency (ER) | payer OTHER ==
[~2018-02-14] VITALS: Ht 154.9 cm; Wt 83.0 kg
[2018-02-14 11:40] VITALS: TEMP 36.8; Ht 154.9 cm; Wt 83.0 kg
[2018-02-14] MEDS ORDERED: ACETAMINOPHEN 500 MG TAB PO STA (12:14)
[2018-02-14] MEDS ORDERED: MAGNESIUM SULFATE 1GM / D5W 100 ML IV STA (12:14)
[2018-02-14] MEDS ORDERED: PROCHLORPERAZINE 5 MG/ML 2 ML VIAL IV STA (12:14)
[2018-02-14] MEDS ORDERED: SODIUM CHLORIDE 0.9% 1000ML 1,000 ML IV STA (12:14)
[2018-02-14] MEDS ORDERED: DiphenhydrAMINE HCL 50 MG/ML VIAL IV STA (12:14)
--- NOTE | 2018-02-14 12:24 | EMERGENCY ROOM VISIT NOTE ---
History Report prepared by Wilfredo: Clark Lopez Under the Supervision of: Dr. Bandar Jordan M.D. First contact with patient: 12:01 Chief Complaint: HEAD PAIN Stated Complaint: PAINS IN HEAD, VOMITING History of Present Illness The patient is a 37 year old white female with a past medical history of migraines, asthma, and tonsillectomy who presents to the ED with a cc of worsening sharp headache beginning last night around 1800. Positive cough. Negative congestion, recent falls, recent heavy lifting or exercise, any aura, trouble hearing, and trouble with vision. She notes that this headache is different than her normal migraines, and her medications are not helping. She notes that the lights or sounds do not make it worse. She usually takes Imitrex for her migraines. She uses tobacco, and her last period was a few weeks ago and was normal. Source of History: patient Onset: last night around 1800 Position: head Quality: sharp Timing: worsening Associated Symptoms: + cough Note: Denies: congestion, recent falls, recent heavy lifting or exercise, any aura, trouble hearing, and trouble with vision Review of Systems See HPI for pertinent positives and negatives. A total of ten systems were reviewed and were otherwise negative. Past Medical & Surgical Medical Problems: (1) Acute bacterial tonsillitis (2) Acute bacterial tonsillitis (3) Acute tonsillitis (4) Asthma (5) Asthma, Unspecified (6) Herniated disc (7) Sore throat (8) Sore throat (9) Strep Sore Throat (10) Tubal Ligation Status Surgical Problems: (1) S/P tonsillectomy and adenoidectomy Family History Cancer Diabetes mellitus Hypertension Social History Smoking Status: Current Every Day Smoker Alcohol Use: none Drug Use: none Marital Status: in relationship Housing Status: lives with family Occupation Status: unemployed, disabled Current/Historical Medications Scheduled Acetaminophen/Diphenhydramine (Tylenol Pm), 1 TAB PO HS Scheduled PRN Albuterol Sulfate (Proair Respiclick), 2 PUFFS INH QID PRN for Asthma Symptoms Fluticasone Prop/Salmeterol (Advair Diskus 100/50 60 Dose), 1 PUFF INH BID PRN for SOB/Wheezing Fluticasone Propionate (Nasal) (Flonase Allergy Relief), 2 SPRAYS ELINA DAILY PRN for Allergy Symptoms Ibuprofen Tab (Advil), 800 MG PO Q8 PRN for Pain Sumatriptan Succinate (Sumatriptan Succinate), 50 MG PO UD PRN for Migraine Sumatriptan Succinate (Sumatriptan Succinate), 6 MG INJ UD PRN for Migraine Allergies Coded Allergies: Cortisone (Verified Allergy, Severe, Rash/hives, 02/14/18) "LOOKED LIKE I WAS SUNBURNT ALL OVER". Reported by PT. Sulfa Antibiotics (Verified Allergy, Unknown, RASH, 02/14/18) Physical Exam Vital Signs Date Time Temp Pulse Resp B/P (MAP) Pulse Ox O2 Delivery O2 Flow Rate FiO2 02/14/18 13:10 58 18 109/50 98 Room Air 02/14/18 11:40 36.8 74 20 135/63 98 Room Air Physical Exam GENERAL: Awake, alert, tearful, in pain, and uncomfortable-appearing, HENT: Normocephalic, atraumatic. No reproducible facial TTP. EYES: Normal conjunctiva. Sclera non-icteric. PERRL. No anisocoria. NECK: Supple. No nuchal rigidity. FROM. RESPIRATORY: CTAB, no rhonchi, wheezing, crackles CARDIAC: RRR, no MRG ABDOMEN: Soft, NTND, BS+ MSK: No chest wall TTP, no LE edema NEURO: CN 2-12 intact, 5/5 upper and lower extremity strength, no dysmetria, no drift, good finger to nose, no sensory deficits. Finger count grossly normal. SKIN: No rash or jaundice noted. Medical Decision & Procedures ER Provider Diagnostic Interpretation: Radiology results as stated below per my review and radiologist interpretation: HEAD WITHOUT CONTRAST (CT) CT DOSE: 638.56 mGycm HISTORY: Mental status change Evaluate for hemorrhage or pathology TECHNIQUE: Multiaxial CT images of the head were performed without the use of intravenous contrast. A dose lowering technique was utilized adhering to the principles of ALARA. Comparison: 01/01/2016 Findings: The paranasal sinuses and mastoid air cells are clear. The calvarium and skull base are intact. The ventricles and sulci are within normal limits. There is no mass, hematoma, midline shift, or acute infarct. Impression: No acute intracranial abnormality. The above report was generated using voice recognition software. It may contain grammatical, syntax or spelling errors. Electronically signed by: Jose Day M.D. 02/14/2018 1:38 PM Dictated Date/Time: 02/14/2018 1:37 PM Laboratory Results 02/14/18 12:30 Red Blood Count 4.73, Mean Corpuscular Volume 89.4, Mean Corpuscular Hemoglobin 30.0, Mean Corpuscular Hemoglobin Concent 33.6, Mean Platelet Volume 12.7, Neutrophils (%) (Auto) 68.5, Lymphocytes (%) (Auto) 22.8, Monocytes (%) (Auto) 7.2, Eosinophils (%) (Auto) 0.9, Basophils (%) (Auto) 0.3, Neutrophils # (Auto) 5.35, Lymphocytes # (Auto) 1.78, Monocytes # (Auto) 0.56, Eosinophils # (Auto) 0.07, Basophils # (Auto) 0.02 02/14/18 12:30 Test 02/14/18 12:30 02/14/18 12:51 White Blood Count 7.80 K/uL (4.8-10.8) Red Blood Count 4.73 M/uL (4.2-5.4) Hemoglobin 14.2 g/dL (12.0-16.0) Hematocrit 42.3 % (37-47) Mean Corpuscular Volume 89.4 fL (80-100) Mean Corpuscular Hemoglobin 30.0 pg (25-34) Mean Corpuscular Hemoglobin Concent 33.6 g/dl (32-36) Platelet Count 189 K/uL (130-400) Mean Platelet Volume 12.7 fL (7.4-10.4) Neutrophils (%) (Auto) 68.5 % Lymphocytes (%) (Auto) 22.8 % Monocytes (%) (Auto) 7.2 % Eosinophils (%) (Auto) 0.9 % Basophils (%) (Auto) 0.3 % Neutrophils # (Auto) 5.35 K/uL (1.4-6.5) Lymphocytes # (Auto) 1.78 K/uL (1.2-3.4) Monocytes # (Auto) 0.56 K/uL (0.11-0.59) Eosinophils # (Auto) 0.07 K/uL (0-0.5) Basophils # (Auto) 0.02 K/uL (0-0.2) RDW Standard Deviation 41.7 fL (36.4-46.3) RDW Coefficient of Variation 12.8 % (11.5-14.5) Immature Granulocyte % (Auto) 0.3 % Immature Granulocyte # (Auto) 0.02 K/uL (0.00-0.02) Anion Gap 4.0 mmol/L (3-11) Est Creatinine Clear Calc Drug Dose 130.9 ml/min Estimated GFR () 137.4 Estimated GFR (Non- 118.6 BUN/Creatinine Ratio 15.3 (10-20) Calcium Level 8.8 mg/dl (8.5-10.1) Chemistry Specimen Hemolysis Urine Test NEG (NEG) Laboratory results reviewed by me Medications Administered Medications (Trade) Dose Ordered Sig/Hellen Route Start Time Stop Time Status Last Admin Dose Admin Prochlorperazine Edisylate (Compazine Inj) 10 mg NOW STAT IV 02/14/18 12:14 02/14/18 12:17 DC 02/14/18 13:02 10 MG Sodium Chloride 1,000 ml @ 999 mls/hr Q1H1M STAT IV 02/14/18 12:14 02/14/18 13:14 DC 02/14/18 13:02 999 MLS/HR Acetaminophen (Tylenol Tab) 1,000 mg NOW STAT PO 02/14/18 12:14 02/14/18 12:17 DC 02/14/18 13:03 1,000 MG Diphenhydramine HCl (Benadryl Inj) 50 mg NOW STAT IV 02/14/18 12:14 02/14/18 12:17 DC 02/14/18 13:02 50 MG Magnesium Sulfate 100 ml @ 100 mls/hr NOW STAT IV 02/14/18 12:14 02/14/18 13:13 DC 02/14/18 13:03 100 MLS/HR ED Course 1201: The patient was evaluated in room C10. A complete history and physical exam was performed. 1411: I reevaluated the patient, and she was feeling better and tolerating PO. Discussed results and discharge instructions: she verbalized understanding and agreement. The patient is ready for discharge. Medical Decision Nursing notes reviewed. Ancillary studies and prior records reviewed. The patient is a 37 year old white female with a past medical history of migraines who presents to the ED with a cc of worsening sharp headache beginning last night around 1800. Differential diagnosis: Etiologies such as migraine headache, meningitis, sinusitis, CO exposure, ICH, SAH, infection, tumor, headache, sinus thrombosis, arterial dissection, as well as others were entertained. Patient was seen and evaluated the bedside. Patient had been complaining of some headache that began last evening. It has been persistent. Mildly atypical compared to prior migraines. Patient states that she does not have much photophobia. Patient denies any aura. Patient denies any recent heavy lifting or strenuous activity. Patient denies any prior history of blood clots or thrombophilia. The patient exam has a nonfocal neurologic exam. Patient had blood work completed along with CT of the brain as well as fluids and medications for symptom improvement. Patient's blood work is fairly unremarkable. CT the brain negative acute. Patient is feeling much improved. Headache is not completely resolved. We did discuss that this may take some time. Given the fact that she has had great improvement in her symptoms and that she has a nonfocal neurologic exam with a negative head CT and no signs of meningismus I do not believe she requires further evaluation, treatment, imaging, or procedures at this time. She was agreeable to this plan of care. Patient was told that she should continue to take her [id number] type medications as well as anything prescribed for her headaches. Patient was able tolerate p.o. without issue. Patient was told if she has any worsening symptoms that she should return to the emergency department. Patient was given strict follow-up, discharge, and return precautions. All questions were answered. Patient was deemed suitable for outpatient follow-up at this time. Patient agreed with the plan of care and was safely discharged home. Medication Reconcilliation Current Medication List: was personally reviewed by me Blood Pressure Screening Patient's blood pressure: Elevated blood pressure Blood pressure disposition: Elevated BP felt to be situational Impression Primary Impression: Headache Additional Impression: Encounter for smoking cessation counseling Scribe Attestation The scribe's documentation has been prepared under my direction and personally reviewed by me in its entirety. I confirm that the note above accurately reflects all work, treatment, procedures, and medical decision making performed by me. Departure Information Dispostion Home / Self-Care Referrals Apolinar Wood M.D. (PCP) Forms HOME CARE DOCUMENTATION FORM, IMPORTANT VISIT INFORMATION, WORK / SCHOOL INSTRUCTIONS Patient Instructions Headache Pain, [facility] Additional Instructions Please return to the emergency department if you have worsening or recurrent symptoms not amenable to at-home treatment. Please call for a follow-up appointment with her primary care physician. Please take your medications as prescribed. If you have other concerns and/or complaints please feel free to also call your primary care physician's office or return the ED for further evaluation, management, and treatment. You may take 800 mg Ibuprofen every 6 hours as needed for pain/fever with food unless told by your physician not to take NSAIDs. You may take tylenol 1000 mg every 6 hours as needed for pain/fever unless told by your physician to not take it or have liver problems. You may take motrin and tylenol separately or at the same time. Take your medications as prescribed. You have been examined and treated today on an emergency basis only. This is not a substitute for, or an effort to provide, complete comprehensive medical care. It is impossible to recognize and treat all injuries or illnesses in a single emergency department visit. It is therefore important that you follow up closely with [facility], your PCP, and/or your specialist(s). Call as soon as possible for an appointment. Thank you for your time and consideration. I look forward to speaking with you again soon. Please don't hesitate to call us if you have any questions. Problem Qualifiers Primary Impression: Headache Headache type: unspecified Headache chronicity pattern: acute headache Intractability: not intractable Qualified Codes: R51 - Headache
[2018-02-14 12:39] LABS: BASO % 0.3 %; BASO ABS # 0.02 K/uL (0-0.2); EOS % 0.9 %; EOS ABS # 0.07 K/uL (0-0.5); HEMATOCRIT 42.3 % (37-47); HEMOGLOBIN 14.2 g/dL (12.0-16.0); IG# 0.02 K/uL (0.00-0.02); LYMPH % 22.8 %; LYMPH ABS # 1.78 K/uL (1.2-3.4); MEAN CELL VOLUME 89.4 fL (80-100); MEAN CORPUSCULAR HGB CONC 33.6 g/dl (32-36); MEAN PLATELET VOLUME 12.7 fL (7.4-10.4); MONO % 7.2 %; MONO ABS # 0.56 K/uL (0.11-0.59); NEUT % 68.5 %; NEUT ABS # 5.35 K/uL (1.4-6.5); PLATELET COUNT 189 K/uL (130-400); RED CELL DISTRIBUTION WIDTH CV 12.8 % (11.5-14.5); RED CELL DISTRIBUTION WIDTH SD 41.7 fL (36.4-46.3)
[2018-02-14 12:58] LABS: CALCIUM 8.8 mg/dl (8.5-10.1); CREATININE 0.58 mg/dl (0.60-1.20); POTASSIUM 4.5 mmol/L (3.5-5.1)
--- NOTE | 2018-02-14 13:40 | DIAGNOSTIC IMAGING REPORT ---
HEAD WITHOUT CONTRAST (CT) CT DOSE: 638.56 mGycm HISTORY: Mental status change Evaluate for hemorrhage or pathology TECHNIQUE: Multiaxial CT images of the head were performed without the use of intravenous contrast. A dose lowering technique was utilized adhering to the principles of ALARA. Comparison: 01/01/2016 Findings: The paranasal sinuses and mastoid air cells are clear. The calvarium and skull base are intact. The ventricles and sulci are within normal limits. There is no mass, hematoma, midline shift, or acute infarct. Impression: No acute intracranial abnormality. The above report was generated using voice recognition software. It may contain grammatical, syntax or spelling errors. Electronically signed by: Jose Day M.D. 02/14/2018 1:38 PM Dictated Date/Time: 02/14/2018 1:37 PM
[2018-02-14 14:49] VITALS: BP 116/59; PULSE 70; O2SAT 96
== END 2018-02-14 14:50 | disposition home or self-care (01) ==
LOC: C.EDB 11:38 → C.EDC 14:50
DX: R51 Headache (principal); Z71.6 Tobacco abuse counseling; J45.909 Unspecified asthma, uncomplicated; F17.200 Nicotine dependence, unspecified, uncomplicated; Z98.51 Tubal ligation status; Z90.89 Acquired absence of other organs; Z83.3 Family history of diabetes mellitus; Z82.49 Family history of ischemic heart disease and other diseases of the circulatory system; Z88.1 Allergy status to other antibiotic agents; Z88.8 Allergy status to other drugs, medicaments and biological substances